=== PATIENT | female | born 1980 | race Caucasian/White ===

== ENCOUNTER 2021-01-16 17:49 | Emergency (ER) | payer BC, OTHER ==
[~2021-01-16] VITALS: Ht 172.7 cm; Wt 102.5 kg
--- NOTE | 2021-01-16 18:24 | ED Cough/URI ---
General Chief Complaint: Respiratory Problems Stated Complaint: COVID +/SOA Nursing Triage Note: PT AMBULATE TO ROOM FS05 WITH C/O SOB. PT REPORTS TESTING POS FOR COVID ON MONDAY. PT DENIES N/V/D. PT REPORTS THAT SHE HAS NOT BEEN EATING VERY MUCH. PT REPORTS TAKING A COLD AND FLU OTC MED AND IBUPROFEN. PT STATES THAT SHE HAS NOT TAKEN TYLENOL BECAUSE IT MAKES HER STOMACH HURT. PT REPORTS PURCHASING A HOME O2 MONITOR YESTERDAY AND THAT HER O2 HAS BEEN 88%-91% SINCE YESTERDAY. History of Present Illness Date Seen by Provider: Jan 16, 2021 Time Seen by Provider: 18:23 Initial Comments 40-year-old female presents with cough and shortness of air. Diagnosed with COVID-19 at an urgent care about a week ago and was given prescription for an albuterol inhaler, nothing else. Patient with continued intermittent fevers and overall feeling the same, no worse. Denies abdominal pain or chest pain, does have discomfort with coughing. Significant past medical history, denies a history of asthma COPD and she is a non-smoker. Allergies and Home Medications Allergies Coded Allergies: No Known Drug Allergies (Unverified , 01/16/21) Home Medications Ivermectin 3 Mg Tablet, 21 MG PO DAILY PRN Prescribed by: MONICO COLON on 01/16/211931 Patient Home Medication List Home Medication List Reviewed: Yes Review of Systems Review of Systems Constitutional: see HPI, chills; No diaphoresis, No dizziness; fever, malaise EENTM: no symptoms reported Respiratory: cough, short of breath; No stridor, No wheezing Cardiovascular: No chest pain, No edema, No palpitations Gastrointestinal: No abdominal pain, No constipation, No diarrhea; loss of appetite; No nausea, No vomiting Musculoskeletal: No back pain, No joint pain, No muscle pain Skin: No change in color, No rash Psychiatric/Neurological: Denies Numbness, Denies Paresthesia, Denies Seizure Past Zsuqsal-Jbngya-Exbbzo Hx Patient Social History Tobacco Use?: No Smoking Status: Never a Smoker Substance use?: No Alcohol Use?: No Pt feels they are or have been: No Physical Exam Vital Signs - First Documented 01/16/21 18:02 Temp 39.2 Pulse 108 Resp 17 B/P (MAP) 136/72 (93) O2 Delivery Room Air Capillary Refill : Less Than 3 Seconds Height: '" Weight: lbs. oz. kg; 34.00 BMI Method: General Appearance: WD/WN, no apparent distress Eyes: Bilateral Eye PERRL, Bilateral Eye EOMI HEENT: PERRL/EOMI, normal ENT inspection Neck: non-tender, full range of motion Respiratory: chest non-tender, lungs clear, no respiratory distress, rhonchi (scattered) Cardiovascular: regular rate, rhythm, no edema, no JVD Gastrointestinal: non tender, soft Extremities: normal range of motion, non-tender, normal inspection, no pedal edema Neurologic/Psychiatric: no motor/sensory deficits, alert, normal mood/affect, oriented x 3 Progress/Results/Core Measures Suspected Sepsis Recent Fever Within 48 Hours: Yes Infection Criteria Present: Documented Infection New/Unexplained Altered Menta: No Within 3hrs of presentation: D/C Instructions given to patient, Focus exam SIRS Temperature: Pulse: 108 Respiratory Rate: 17 Laboratory Tests 01/16/21 18:32: White Blood Count 7.4 Blood Pressure 136 /72 Mean: 93 Laboratory Tests 01/16/21 18:32: Creatinine 0.82, Platelet Count 242, Total Bilirubin 0.4 Results/Orders Lab Results Laboratory Tests Test 01/16/21 18:32 Range/Units White Blood Count 7.4 4.3-11.0 10^3/uL Red Blood Count 4.43 4.35-5.85 10^6/uL Hemoglobin 11.1 L 11.5-16.0 G/DL Hematocrit 35 35-52 % Mean Corpuscular Volume 80 80-99 FL Mean Corpuscular Hemoglobin 25 25-34 PG Mean Corpuscular Hemoglobin Concent 31 L 32-36 G/DL Red Cell Distribution Width 14.1 10.0-14.5 % Platelet Count 242 130-400 10^3/uL Mean Platelet Volume 9.8 7.4-10.4 FL Immature Granulocyte % (Auto) 0 % Neutrophils (%) (Auto) 89 H 42-75 % Lymphocytes (%) (Auto) 7 L 12-44 % Monocytes (%) (Auto) 4 0-12 % Eosinophils (%) (Auto) 0 0-10 % Basophils (%) (Auto) 0 0-10 % Neutrophils # (Auto) 6.6 1.8-7.8 X 10^3 Lymphocytes # (Auto) 0.5 L 1.0-4.0 X 10^3 Monocytes # (Auto) 0.3 0.0-1.0 X 10^3 Eosinophils # (Auto) 0.0 0.0-0.3 10^3/uL Basophils # (Auto) 0.0 0.0-0.1 10^3/uL Immature Granulocyte # (Auto) 0.0 0.0-0.1 10^3/uL Sodium Level 135 135-145 MMOL/L Potassium Level 3.2 L 3.6-5.0 MMOL/L Chloride Level 97 L 98-107 MMOL/L Carbon Dioxide Level 27 21-32 MMOL/L Anion Gap 11 5-14 MMOL/L Blood Urea Nitrogen 7 7-18 MG/DL Creatinine 0.82 0.60-1.30 MG/DL Estimat Glomerular Filtration Rate 76 BUN/Creatinine Ratio 9 Glucose Level 131 H 70-105 MG/DL Calcium Level 8.5 8.5-10.1 MG/DL Corrected Calcium 8.6 8.5-10.1 MG/DL Total Bilirubin 0.4 0.1-1.0 MG/DL Aspartate Amino Transf (AST/SGOT) 51 H 5-34 U/L Alanine Aminotransferase (ALT/SGPT) 22 0-55 U/L Alkaline Phosphatase 72 40-136 U/L C-Reactive Protein 9.13 H <0.50 MG/DL Total Protein 7.7 6.4-8.2 GM/DL Albumin 3.9 3.2-4.5 GM/DL My Orders Orders - ROVENSTINEMONICO DO Ed Iv/Invasive Line Start (01/16/21 18:23) Cbc With Automated Diff (01/16/21 18:23) Comprehensive Metabolic Panel (01/16/21 18:23) Chest 1 View Ap/Pa Only (01/16/21 18:23) Ed Iv/Invasive Line Start (01/16/21 18:34) Crp Fs (01/16/21 18:34) Manual Differential (01/16/21 18:32) Methylprednisolone Sod Succ (Solu-Medrol (01/16/21 19:30) Medications Given in ED Current Medications Medications Dose Ordered Sig/Audie Route Start Time Stop Time Status Last Admin Dose Admin Methylprednisolone Sodium Succinate 125 mg ONCE ONCE IVP 01/16/21 19:30 01/16/21 19:31 DC 01/16/21 19:27 125 MG Vital Signs/I&O 01/16/21 18:02 Temp 39.2 Pulse 108 Resp 17 B/P (MAP) 136/72 (93) O2 Delivery Room Air Capillary Refill : Less Than 3 Seconds Blood Pressure Mean: 93 Progress Note : Progress Note patient with known Covid, Dx from urgent care and given Rx for an inhaler. Has had no further guidance, not improving. Oxygen sats 91-94% on RA. Patient not in any respiratory distress. Discussed oupatient protocol and ER follow up if needed. Pt agrees and expresses understanding. Diagnostic Imaging Diagonstic Imaging: Xray Comments Date of Exam:01/16/21 CHEST 1 VIEW AP/PA ONLY INDICATION: Shortness of breath, Covid positive. EXAMINATION: Frontal chest was obtained at 6:32 p.m. FINDINGS: Heart and mediastinal silhouette appear unremarkable. There are patchy infiltrates throughout both lungs, suspicious for Covid pneumonia. There is no pneumothorax or pleural fluid. IMPRESSION: Patchy bilateral infiltrates are present which are suspicious for Covid pneumonia but are nonspecific. Correlate with clinical findings. Dictated on workstation # [id number] Dict: 01/16/211924 Trans: 01/16/211930 [facility] [id number] Interpreted by: JOSE A MORIN MD Electronically signed by: Departure Impression Primary Impression: Pneumonia due to COVID-19 virus Disposition: 01 HOME, SELF-CARE Condition: Stable Departure-Patient Inst. Decision time for Depature: 19:32 [address]: [facility] [place] Instructions: COVID-19 ED Add. Discharge Instructions: Return to the ER for any worsening of your shortness of air or oxygen saturations persisting below 90%. You are advised to establish a primary care provider for future follow up care Please take the following daily: - Aspirin 325mg (unless you have a medical reason not to take) daily for 2 weeks - Vitamin D 4,000iu daily - Vitamin C 1,000mg twice daily - Quercetin 250mg twice daily - Zinc 100mg daily - Melatonin 10mg at bedtime All discharge instructions reviewed with patient and/or family. Voiced understanding. Scripts Ivermectin (Ivermectin) 3 Mg Tablet 21 MG PO DAILY PRN for 5 Days, #35 TAB Prov: MONICO COLON DO 01/16/21 MONICO COLON DO Jan 16, 2021 18:24
[2021-01-16 18:57] LABS: BASOPHILS % (AUTO) 0 % (0-10); EOSINOPHILS % (AUTO) 0 % (0-10); HEMATOCRIT 35 % (35-52); HEMOGLOBIN 11.1 G/DL (11.5-16.0); LYMPHOCYTES # (AUTO) 0.5 X 10^3 (1.0-4.0); LYMPHOCYTES % (AUTO) 7 % (12-44); MEAN CORPUSCULAR HEMOGLOBIN 25 PG (25-34); MEAN CORPUSCULAR HGB CONC 31 G/DL (32-36); MEAN CORPUSCULAR VOLUME 80 FL (80-99); MEAN PLATELET VOLUME 9.8 FL (7.4-10.4); MONOCYTES # (AUTO) 0.3 X 10^3 (0.0-1.0); MONOCYTES % (AUTO) 4 % (0-12); NEUTROPHILS # (AUTO) 6.6 X 10^3 (1.8-7.8); NEUTROPHILS % (AUTO) 89 % (42-75); PLATELET COUNT 242 10^3/uL (130-400); POTASSIUM 3.2 MMOL/L (3.6-5.0); WHITE BLOOD COUNT 7.4 10^3/uL (4.3-11.0)
[2021-01-16 18:58] LABS: ALBUMIN 3.9 GM/DL (3.2-4.5); BILIRUBIN,TOTAL 0.4 MG/DL (0.1-1.0); CALCIUM 8.5 MG/DL (8.5-10.1); CREATININE SERUM 0.82 MG/DL (0.60-1.30); TOTAL PROTEIN 7.7 GM/DL (6.4-8.2)
[2021-01-16] MEDS ORDERED: methylPREDNISolone 125 MG (Solu-MEDROL) VIAL IVP ONE (19:30)
--- NOTE | 2021-01-16 19:31 | Diagnostic Imaging Report ---
INDICATION: Shortness of breath, Covid positive. EXAMINATION: Frontal chest was obtained at 6:32 p.m. FINDINGS: Heart and mediastinal silhouette appear unremarkable. There are patchy infiltrates throughout both lungs, suspicious for Covid pneumonia. There is no pneumothorax or pleural fluid. IMPRESSION: Patchy bilateral infiltrates are present which are suspicious for Covid pneumonia but are nonspecific. Correlate with clinical findings. Dictated by: Dictated on workstation # [id number]
[2021-01-16] MEDS ORDERED: IVER3TAB2 PO (19:32)
[2021-01-16 19:53] VITALS: BP 125/65
[2021-01-16 20:05] LABS: BAND NEUTROPHILS 2 %; LYMPHOCYTES % (MANUAL) 3 %; MONOCYTES % (MANUAL) 3 %; NEUTROPHILS % (MANUAL) 92 %
== END 2021-01-16 19:55 | disposition home or self-care (01) ==
LOC: ER FS 17:51
DX: U07.1 COVID-19 (principal); J12.82 Pneumonia due to coronavirus disease 2019
CPT/HCPCS: 36415; 71045; 80053; 85007; 85027; 86141; 96374

== ENCOUNTER 2021-01-18 07:48 | Inpatient (IN) | payer BC ==
[~2021-01-18] VITALS: Ht 172.7 cm; Wt 98.4 kg
[~2021-01-18 07:48] MED LIST: IVER3TAB2 PO
--- NOTE | 2021-01-18 08:05 | ED Dyspnea ---
General Stated Complaint: SOB; COVID+ Source of Information: Patient Exam Limitations: No Limitations History of Present Illness Date Seen by Provider: Jan 18, 2021 Time Seen by Provider: 08:05 Initial Comments 40-year-old female presents to the ER with complaint of shortness of air. Seen in this ER myself 2 days ago for shortness of air with oxygen sats in the low 90's... see note for details. Patient with known Covid diagnosed 1 week prior to an urgent care and only treatment given was an albuterol inhaler. Patient had persistent shortness of air that was not improving if not getting worse. Given prescription for ivermectin which she states the pharmacist refused to fill on Monday. Today she is feeling worse. Allergies and Home Medications Allergies Coded Allergies: No Known Drug Allergies (Unverified , 01/16/21) Home Medications Ivermectin 3 Mg Tablet, 21 MG PO DAILY PRN Prescribed by: MONICO COLON on 01/16/211931 Patient Home Medication List Home Medication List Reviewed: Yes Review of Systems Review of Systems Constitutional: No chills, No fever; malaise EENTM: no symptoms reported Respiratory: cough, short of breath; No wheezing Cardiovascular: No chest pain, No edema, No palpitations Gastrointestinal: No abdominal pain; loss of appetite; No nausea, No vomiting Musculoskeletal: No back pain, No joint pain Skin: No change in color, No rash Psychiatric/Neurological: Denies Numbness, Denies Seizure, Denies Weakness Past Vrplucb-Vnnund-Lhadyq Hx Patient Social History Tobacco Use?: No Physical Exam Vital Signs Vital Signs - First Documented 01/18/21 08:00 Temp 37.0 Pulse 88 Resp 18 B/P (MAP) 106/63 (77) Pulse Ox 92 O2 Delivery Nasal Cannula O2 Flow Rate 3.00 Capillary Refill : Height, Weight, BMI Height: '" Weight: lbs. oz. kg; 34.00 BMI Method: General Appearance: No Apparent Distress, WD/WN HEENT: PERRL/EOMI, Normal ENT Inspection Neck: Non Tender, Supple Respiratory: Chest Non Tender, Lungs Clear, Normal Breath Sounds, No Accessory Muscle Use, No Respiratory Distress Cardiovascular: Regular Rate, Rhythm, No Edema, No JVD Gastrointestinal: Non Tender, Soft Extremity: Normal Inspection, Non Tender Neurologic/Psychiatric: Alert, Oriented x3, No Motor/Sensory Deficits, Normal Mood/Affect Skin: Normal Color, Warm/Dry Focused Exam Lactate Level 01/18/21 08:35: Lactic Acid Level 1.58 Lactic Acid Level Laboratory Tests Test 01/18/21 08:35 Lactic Acid Level 1.58 MMOL/L (0.50-2.00) Progress/Results/Core Measures Results/Orders Lab Results Laboratory Tests Test 01/18/21 08:35 Range/Units White Blood Count 12.3 H 4.3-11.0 10^3/uL Red Blood Count 4.29 L 4.35-5.85 10^6/uL Hemoglobin 10.9 L 11.5-16.0 G/DL Hematocrit 34 L 35-52 % Mean Corpuscular Volume 79 L 80-99 FL Mean Corpuscular Hemoglobin 25 25-34 PG Mean Corpuscular Hemoglobin Concent 32 32-36 G/DL Red Cell Distribution Width 14.3 10.0-14.5 % Platelet Count 290 130-400 10^3/uL Mean Platelet Volume 10.3 7.4-10.4 FL Immature Granulocyte % (Auto) 1 % Neutrophils (%) (Auto) 93 H 42-75 % Lymphocytes (%) (Auto) 5 L 12-44 % Monocytes (%) (Auto) 2 0-12 % Eosinophils (%) (Auto) 0 0-10 % Basophils (%) (Auto) 0 0-10 % Neutrophils # (Auto) 11.4 H 1.8-7.8 X 10^3 Lymphocytes # (Auto) 0.6 L 1.0-4.0 X 10^3 Monocytes # (Auto) 0.2 0.0-1.0 X 10^3 Eosinophils # (Auto) 0.0 0.0-0.3 10^3/uL Basophils # (Auto) 0.0 0.0-0.1 10^3/uL Immature Granulocyte # (Auto) 0.1 0.0-0.1 10^3/uL Neutrophils % (Manual) 84 % Lymphocytes % (Manual) 2 % Monocytes % (Manual) 3 % Eosinophils % (Manual) 0 % Basophils % (Manual) 0 % Band Neutrophils 11 % D-Dimer 0.74 H 0.00-0.49 UG/ML Sodium Level 136 135-145 MMOL/L Potassium Level 3.0 L 3.6-5.0 MMOL/L Chloride Level 98 98-107 MMOL/L Carbon Dioxide Level 26 21-32 MMOL/L Anion Gap 12 5-14 MMOL/L Blood Urea Nitrogen 21 H 7-18 MG/DL Creatinine 1.07 0.60-1.30 MG/DL Estimat Glomerular Filtration Rate 56 BUN/Creatinine Ratio 20 Glucose Level 134 H 70-105 MG/DL Lactic Acid Level 1.58 0.50-2.00 MMOL/L Calcium Level 8.8 8.5-10.1 MG/DL Corrected Calcium 9.1 8.5-10.1 MG/DL Total Bilirubin 0.3 0.1-1.0 MG/DL Aspartate Amino Transf (AST/SGOT) 55 H 5-34 U/L Alanine Aminotransferase (ALT/SGPT) 27 0-55 U/L Alkaline Phosphatase 66 40-136 U/L C-Reactive Protein 9.89 H <0.50 MG/DL Total Protein 7.5 6.4-8.2 GM/DL Albumin 3.6 3.2-4.5 GM/DL Procalcitonin 0.14 H <0.10 NG/ML My Orders Orders - MONICO COLON DO Ed Iv/Invasive Line Start (01/18/21 08:14) Cbc With Automated Diff (01/18/21 08:14) Comprehensive Metabolic Panel (01/18/21 08:14) Procalcitonin (Pct) (01/18/21 08:14) Crp Fs (01/18/21 08:14) Fibrin Degradation Products (01/18/21 08:14) Lactic Acid Analyzer (01/18/21 08:14) Chest 1 View Ap/Pa Only (01/18/21 08:14) Methylprednisolone Sod Succ (Solu-Medrol (01/18/21 08:30) Manual Differential (01/18/21 08:35) Medications Given in ED Current Medications Medications Dose Ordered Sig/Audie Route Start Time Stop Time Status Last Admin Dose Admin Methylprednisolone Sodium Succinate 125 mg ONCE ONCE IVP 01/18/21 08:30 01/18/21 08:31 DC 01/18/21 08:32 125 MG Vital Signs/I&O 01/18/21 08:00 Temp 37.0 Pulse 88 Resp 18 B/P (MAP) 106/63 (77) Pulse Ox 92 O2 Delivery Nasal Cannula O2 Flow Rate 3.00 Progress Progress Note : Time: 13:01 Progress Note Doing well, oxygen stable, no worsening soa. Waiting for transport to [facility], [place], operated by [facility]. Departure Communication (Admissions) Time/Spoke to Admitting Phy: 09:[address] Aldrich- accepts for admission Impression Primary Impression: Pneumonia due to COVID-19 virus Additional Impression: Hypoxia Disposition: 30 STILL A PATIENT Condition: Stable Admissions Decision to Admit Reason: Admit from ER (General) Decision to Admit/Date: Jan 18, 2021 Time/Decision to Admit Time: 08:05 Departure-Patient Inst. Referrals: NO,LOCAL PHYSICIAN (PCP/Family) Primary Care Physician MONICO COLON DO Jan 18, 2021 08:05
[2021-01-18] MEDS ORDERED: methylPREDNISolone 125 MG (Solu-MEDROL) VIAL IVP ONE (08:30)
[2021-01-18] MEDS ORDERED: BUDE10.26 INH (08:41)
[2021-01-18 08:44] LABS: WHITE BLOOD COUNT 12.3 10^3/uL (4.3-11.0)
[2021-01-18 08:46] LABS: BASOPHILS % (AUTO) 0 % (0-10); EOSINOPHILS % (AUTO) 0 % (0-10); HEMATOCRIT 34 % (35-52); HEMOGLOBIN 10.9 G/DL (11.5-16.0); LYMPHOCYTES % (AUTO) 5 % (12-44); MEAN CORPUSCULAR HEMOGLOBIN 25 PG (25-34); MEAN CORPUSCULAR HGB CONC 32 G/DL (32-36); MEAN CORPUSCULAR VOLUME 79 FL (80-99); MEAN PLATELET VOLUME 10.3 FL (7.4-10.4); MONOCYTES % (AUTO) 2 % (0-12); NEUTROPHILS % (AUTO) 93 % (42-75); PLATELET COUNT 290 10^3/uL (130-400)
--- NOTE | 2021-01-18 08:46 | Diagnostic Imaging Report ---
INDICATION: Covid patient, shortness of air. COMPARISON: 01/16/2021. FINDINGS: The five lobed bilateral multifocal nodular infiltrates have progressed in density. The increase is most notable in the upper lobes. No effusion or pneumothorax, however. IMPRESSION: Increased multifocal patchy 5 lobed infiltrates. Dictated by: Dictated on workstation # [id number]
[2021-01-18 08:47] LABS: LYMPHOCYTES # (AUTO) 0.6 X 10^3 (1.0-4.0); MONOCYTES # (AUTO) 0.2 X 10^3 (0.0-1.0); NEUTROPHILS # (AUTO) 11.4 X 10^3 (1.8-7.8)
[2021-01-18 09:03] LABS: CREATININE SERUM 1.07 MG/DL (0.60-1.30)
[2021-01-18 09:04] LABS: ALBUMIN 3.6 GM/DL (3.2-4.5); BILIRUBIN,TOTAL 0.3 MG/DL (0.1-1.0); CALCIUM 8.8 MG/DL (8.5-10.1); TOTAL PROTEIN 7.5 GM/DL (6.4-8.2)
[2021-01-18 09:25] LABS: BAND NEUTROPHILS 11 %; BASOPHILS % (MANUAL) 0 %; EOSINOPHILS % (MANUAL) 0 %; LYMPHOCYTES % (MANUAL) 2 %; MONOCYTES % (MANUAL) 3 %; NEUTROPHILS % (MANUAL) 84 %
[2021-01-18] MEDS ORDERED: CATHETER FLUSH 10 ML SYR IV PRN (15:15)
[2021-01-18 15:37] VITALS: BP 111/67
[2021-01-18 15:58] VITALS: BP 111/67
[2021-01-18] MEDS ORDERED: ACETAMINOPHEN 325 MG TABLET PO PRN (17:15)
--- NOTE | 2021-01-18 17:19 | History & Physical-Hospitalist ---
History of Present Illness HPI/Chief Complaint Pt is a 40yoF with no known PMH who presented to the ER due to shortness of breath and cough. She has been symptomatic for 10 days. She was diagnosis with COVID on 01/15 and was seen in the ER on 01/16. The ER physician prescribed her Ivermectin. This was not filled. She presented this morning because her sats were 83% at home. She was hypoxic on arrival to the Er as well and is being admitted. She has many COVID related symptoms. She complains of fever, chills, cough, diarrhea, loss of appetite. She is unvaccinated against COVID19. Source: patient Date Seen 01/18/21 Time Seen by a Provider: 18:44 Attending Physician Maykel Aldrich MD PCP No,Local Physician Referring Physician Date of Admission Jan 18, 2021 at 14:47 Home Medications & Allergies Home Medications Reviewed patient Home Medication Reconciliation performed by pharmacy medication reconciliations psychiatric technician assistant and/or nursing. Patients Allergies have been reviewed. Allergies Allergies Coded Allergies No Known Drug Allergies (Unverified01/16/21) Past Txjcysy-Vcjevv-Ieswew Hx Patient Social History Tobacco Use?: No Use of E-Cig and/or Vaping dev: No Substance use?: No Alcohol Use?: No Pt feels they are or have been: No Immunizations Up To Date First/Initial COVID19 Vaccinat: N /A Tetanus Booster (TDap): Unknown Hepatitis A: No Hepatitis B: No Current Status status: No status: No Advance Directives: No Communicates: Verbally Primary Language: [place] Preferred Spoken Language: [place] Is interpretation needed?: No Sensory deficits: Vision impairment Implanted or Applied Medical D: None Review of Systems Constitutional: chills, fever, malaise, weakness EENTM: no symptoms reported Respiratory: cough, dyspnea on exertion, short of breath Cardiovascular: No chest pain, No palpitations Gastrointestinal: diarrhea, loss of appetite Genitourinary: no symptoms reported Musculoskeletal: no symptoms reported Skin: no symptoms reported Psychiatric/Neurological: No Symptoms Reported Physical Exam Physical Exam Vital Signs Vital Signs - First Documented 01/18/21 01/18/21 08:00 15:58 Temp 37.0 Pulse 88 Resp 18 B/P (MAP) 106/63 (77) Pulse Ox 92 O2 Delivery Nasal Cannula O2 Flow Rate 3.00 FiO2 36 Capillary Refill : Less Than 3 Seconds Height, Weight, BMI Height: '" Weight: lbs. oz. kg; 34.43 BMI Method: General Appearance: No Apparent Distress, WD/WN, Obese HEENT: PERRL/EOMI, Moist Mucous Membranes Neck: Normal Inspection, Supple Respiratory: No Accessory Muscle Use; No Crackles; Decreased Breath Sounds; No Wheezing Cardiovascular: Regular Rate, Rhythm, No JVD, No Murmur Gastrointestinal: Normal Bowel Sounds, Non Tender, Soft Extremity: Normal Capillary Refill, No Calf Tenderness, No Pedal Edema Neurologic/Psychiatric: Alert, Oriented x3, Normal Mood/Affect Results Results/Procedures Labs Laboratory Tests 01/18/21 08:35 Patient resulted labs reviewed. Imaging: Reviewed Imaging Report Imaging [facility] [place] NAME: CATHIE PINEDO [facility] REC#: [id number] PT STATUS: ADM IN : 1980 PHYSICIAN: MONICO COLON DO ADMIT DATE: 01/18/21 Signed Date of Exam:01/18/21 CHEST 1 VIEW AP/PA ONLY INDICATION: Covid patient, shortness of air. COMPARISON: 01/16/2021. FINDINGS: The five lobed bilateral multifocal nodular infiltrates have progressed in density. The increase is most notable in the upper lobes. No effusion or pneumothorax, however. IMPRESSION: Increased multifocal patchy 5 lobed infiltrates. Dictated by: Dictated on workstation # [id number] Dict: 01/18/21 0844 Trans: 01/18/21 1652 [id number] Interpreted by: ROSE MARIE COOPER Electronically signed by: ROSE MARIE COOPER 01/18/21 1652 Assessment/Plan Admission Diagnosis Acute Respiratory failure due to COVID19 Admission Status: Inpatient Order (span 2 midnights) Reason for Inpatient Admission: see below Assessment and Plan Acute Respiratory failure due to COVID19 10 days since symptom onset Decadron Remdesivir IS MAT protocol supportive measures Convalescent plasma unavailable as [employer] no longer collecting it Lovenox for Dvt ppx Diagnosis/Problems Diagnosis/Problems (1) Acute respiratory failure (2) Coronavirus infection MAYKEL ALDRICH MD Jan 18, 2021 17:18
[2021-01-18] MEDS ORDERED: REMDESIVIR INJ 200 MG in NS (IVPB) 210 ML IV NR (17:30)
[2021-01-18] MEDS: IBUPROFEN 600 MG (MOTRIN) TAB PO PRN (18:30)
[2021-01-18] MEDS: ENOXAPARIN 40 MG/0.4 ML (LOVENOX) SYR SC SCH (18:30)
[2021-01-18] MEDS: guaiFENesin SYRUP 100 MG/5 ML 10 ML (ROBITUSSIN SF) PO PRN (18:31)
--- NOTE | 2021-01-18 19:04 | Tele-ICU Consult ---
History of Present Illness History of Present Illness Date Seen by Provider: Jan 18, 2021 Time Seen by Provider: 18:30 Date of Admission Patient acknowledged, consented, and participated in this virtual visit which was conducted using real time audio/video. Thank you for asking us to see this patient for respiratory insufficiency and distress due to Covid pna.. HPC: Recent events: Admitted earlier today and feels a little better PMH: none SH: smoking history: Never FH: Non-contributory ROS: as in HPI PE: Converses comfortably. VSS O2 sat 92% on 4 LPM NC. HEENT: No obvious masses, adenopathy or JVD. Chest: clear to auscultation but slightly diminished.. CV: RRR S1 S2 No murmur or added sounds. Abd: Non-tender. Bowel sounds Y. : Unremarkable. Bradley N. MARKETING SENIOR RECRUITER/psychiatric: Alert and oriented, grossly intact. No obvious focal findings. Extremities: No edema. Capillary refill < 3 seconds. Skin: unremarkable. Results: Elevated WCC 12.3, D-Dimer 0.74. Decreased Hb 10.9, K 3.0. A/P: Respiratory insufficiency/distress: CPM Available chart/ vitals / labs / Images reviewed. CXR w extensive B infiltrates. Video assessment done using teleICU camera, rest of exam as per RN. Respiratory: Continue present management with Alb., Remdes., Dex., troy. Monitor for increasing oxygenation needs and/or need for ICU transfer. Discussed with JIMBO Borrero. Asked RN to reach out to eICU if any questions or concerns later. Time spent with patient/family/coordination of care with other health professionals (mins): 25 Allergies and Home Medications Allergies Coded Allergies: No Known Drug Allergies (Unverified , 01/16/21) Home Medications Ivermectin 3 Mg Tablet, 21 MG PO DAILY PRN Prescribed by: MONICO COLON on 01/16/211931 Past Medical/Social/Family Hx Patient Social History Tobacco Use?: No Use of E-Cig and/or Vaping dev: No Substance use?: No Alcohol Use?: No Pt stated abuse/neglect: No Immunizations Up To Date Influenza Vaccine Up-to-Date: No; Not Current First/Initial COVID19 Vaccinat: N /A Tetanus Booster (TDap): Unknown Hepatitis A: No Hepatitis B: No TB Skin Test: None Current Status status: No status: No Advance Directives: No Communicates: Verbally Primary Language: Arabic Preferred Spoken Language: Arabic Is interpretation needed?: No Sensory deficits: Vision impairment Implanted or Applied Medical D: None Review of Systems Constitutional: see HPI EENTM: see HPI Respiratory: see HPI Cardiovascular: see HPI Gastrointestinal: see HPI Genitourinary: see HPI Musculoskeletal: see HPI Skin: see HPI All Other Systems Reviewed Negative Unless Noted: Yes Sepsis Event Evaluation Height, Weight, BMI Height: '" Weight: lbs. oz. kg; 34.43 BMI Method: Exam Exam Patient acknowledged, consented, and participated in this virtual visit which was conducted using real time audio/video Vital Signs Date Time Temp Pulse Resp B/P (MAP) Pulse Ox O2 Delivery O2 Flow Rate FiO2 01/18/21 15:58 36.8 75 91 36 01/18/21 15:37 36.8 75 18 111/67 (82) 91 Nasal Cannula 4.00 01/18/21 15:10 91 Nasal Cannula 4.00 01/18/21 14:10 37.3 77 18 108/75 (77) 93 Nasal Cannula 3.00 01/18/21 08:00 37.0 88 18 106/63 (77) 92 Nasal Cannula 3.00 Height & Weight Height: '" Weight: lbs. oz. kg; 34.43 BMI Method: General Appearance: No Apparent Distress, WD/WN HEENT: PERRL/EOMI, Normal ENT Inspection Neck: Non Tender, Supple Respiratory: Chest Non Tender, Lungs Clear, Normal Breath Sounds, No Accessory Muscle Use, No Respiratory Distress Cardiovascular: Regular Rate, Rhythm, No Edema, No JVD Capillary Refill: Less Than 3 Seconds Extremity: Normal Inspection, Non Tender Neurologic/Psychiatric: Alert, Oriented x3, No Motor/Sensory Deficits, Normal Mood/Affect Skin: Normal Color, Warm/Dry Results Lab Laboratory Tests 01/18/21 08:35 Assessment/Plan Assessment/Plan see free text Critical Care: Critically Ill Patient Time spent on discussion(mins): 0 ANUPAMA DAS MD Jan 18, 2021 19:04
[2021-01-18 19:49] VITALS: BP 119/71
[2021-01-18] MEDS: RT-ALBUTEROL HFA 8.5 GM INHALER IH SCH (20:28)
[2021-01-18] MEDS: CATHETER FLUSH 10 ML SYR IV SCH (21:15)
[2021-01-18 23:30] VITALS: BP 105/59
[2021-01-19] MEDS: RT-ALBUTEROL HFA 8.5 GM INHALER IH SCH ×4 (02:45→22:19)
[2021-01-19 03:26] VITALS: BP_SYST 86; BP_SYST 89; BP_DIAS 52
[2021-01-19] MEDS: CATHETER FLUSH 10 ML SYR IV SCH ×3 (05:27→20:19)
[2021-01-19 06:13] LABS: HEMATOCRIT 34 % (35-52); HEMOGLOBIN 10.5 g/dL (11.5-16.0); MEAN CORPUSCULAR HEMOGLOBIN 25 pg (25-34); MEAN CORPUSCULAR HGB CONC 31 g/dL (32-36); MEAN CORPUSCULAR VOLUME 81 fL (80-99); MEAN PLATELET VOLUME 10.1 fL (9.0-12.2); PLATELET COUNT 280 10^3/uL (130-400); WHITE BLOOD COUNT 9.7 10^3/uL (4.3-11.0)
[2021-01-19 06:25] LABS: ALBUMIN 3.5 GM/DL (3.2-4.5); POTASSIUM 3.4 MMOL/L (3.6-5.0)
[2021-01-19 06:26] LABS: CALCIUM 8.7 MG/DL (8.5-10.1)
[2021-01-19 06:28] LABS: TOTAL PROTEIN 7.3 GM/DL (6.4-8.2)
[2021-01-19 06:29] LABS: BILIRUBIN,TOTAL 0.3 MG/DL (0.1-1.0)
[2021-01-19 06:31] LABS: CREATININE SERUM 0.67 MG/DL (0.60-1.30)
[2021-01-19] MEDS: guaiFENesin SYRUP 100 MG/5 ML 10 ML (ROBITUSSIN SF) PO PRN (07:06)
[2021-01-19 08:00] VITALS: BP 123/61
[2021-01-19] MEDS: dexAMETHasone 6 MG TAB (DECADRON) PO SCH (09:02)
[2021-01-19] MEDS ORDERED: LORA10TA76 PO (09:27)
[2021-01-19] MEDS ORDERED: IBUP-2473 PO (09:27)
[2021-01-19] MEDS ORDERED: ACET-2267 PO (09:27)
[2021-01-19] MEDS ORDERED: CALC10009 PO (09:27)
--- NOTE | 2021-01-19 10:24 | Pulmonary Progress Note ---
Subjective Date Seen by a Provider: Jan 19, 2021 Time Seen by a Provider: 11:48 Subjective/Events-last exam events over night vapotherm added 25%; cant lye down due sob Sepsis Event Evaluation Height, Weight, BMI Height: '" Weight: lbs. oz. kg; 34.43 BMI Method: Focused Exam Lactate Level 01/18/21 08:35: Lactic Acid Level 1.58 Exam Exam Patient acknowledged, consented, and participated in this virtual visit which was conducted using real time audio/video Vital Signs Date Time Temp Pulse Resp B/P (MAP) Pulse Ox O2 Delivery O2 Flow Rate FiO2 01/19/21 10:00 93 Vapotherm 25.00 70 01/19/21 03:26 36.0 64 18 89/52 (64) 99 Vapotherm 25.00 80.00 01/19/21 02:45 97 Vapotherm 25.00 80 01/18/21 23:30 36.0 75 18 105/59 (74) 92 High Flow N/C 6.00 01/18/21 20:28 95 Nasal Cannula 5.00 01/18/21 20:20 95 Nasal Cannula 5.00 01/18/21 19:49 36.8 80 20 119/71 (87) 91 Nasal Cannula 7.00 01/18/21 15:58 36.8 75 91 36 01/18/21 15:37 36.8 75 18 111/67 (82) 91 Nasal Cannula 4.00 01/18/21 15:10 91 Nasal Cannula 4.00 01/18/21 14:10 37.3 77 18 108/75 (77) 93 Nasal Cannula 3.00 I & O 01/19/21 07:00 Intake Total 1540 ml Balance 1540 ml Height & Weight Height: '" Weight: lbs. oz. kg; 34.43 BMI Method: General Appearance: No Apparent Distress, WD/WN, Mild Distress, Obese HEENT: PERRL/EOMI, Moist Mucous Membranes Neck: Normal Inspection, Supple Respiratory: No Accessory Muscle Use; No Crackles; Decreased Breath Sounds; No Wheezing Cardiovascular: Regular Rate, Rhythm, No JVD, No Murmur Capillary Refill: Less Than 3 Seconds Extremity: Normal Capillary Refill, No Calf Tenderness, No Pedal Edema Neurologic/Psychiatric: Alert, Oriented x3, Normal Mood/Affect Skin: Normal Color, Warm/Dry Results Lab Laboratory Tests 01/18/21 08:35 01/19/21 06:05 Assessment/Plan Assessment/Plan Acute hypoxemic resp failure -covid pna -ct chest ro pe on hold / we will order duplex of lower ext -trend ddimer -cpm abg ordered as well pt visualized ISABEL RECINOS MD Jan 19, 2021 10:24
[2021-01-19] MEDS ORDERED: HOLD METFORMIN - RECEIVED CONTRAST 20 ML VIAL IV SCH (10:30)
[2021-01-19] MEDS ORDERED: IOHEXOL 350 MG/ML 100 ML (OMNIPAQUE 350) VIAL IV ONE (10:30)
[2021-01-19] MEDS ORDERED: CATHETER FLUSH 10 ML SYR IV PRN (10:30)
[2021-01-19] MEDS ORDERED: NS 100 ML (IVPB) BAG IV ONE (10:30)
[2021-01-19 11:01] LABS: ABG OXYGEN SATURATION 94 % (94-100); ABG PCO2 38 MMHG (35-45); ABG PH 7.49 (7.37-7.43); ABG PO2 63 MMHG (79-93); ABG TCO2 29.7 MMOL/L (21.0-31.0)
[2021-01-19 11:02] LABS: ALLENS TEST YES-POS; INSPIRED O2 70%; PATIENT TEMP 36.6; VENTILATOR NO
[2021-01-19] MEDS ORDERED: [UNRECOGNIZED DRUG - REMARK] IV NR (11:30)
[2021-01-19 12:00] VITALS: BP 105/58
--- NOTE | 2021-01-19 13:42 | Progress Note - Hospitalist ---
Subjective HPI/CC On Admission Date Seen by Provider: Jan 19, 2021 Time Seen by Provider: 13:38 Pt is a 40yoF with no known PMH who presented to the ER due to shortness of breath and cough. She has been symptomatic for 10 days. She was diagnosis with COVID on 01/15 and was seen in the ER on 01/16. The ER physician prescribed her Ivermectin. This was not filled. She presented this morning because her sats were 83% at home. She was hypoxic on arrival to the Er as well and is being admitted. She has many COVID related symptoms. She complains of fever, chills, cough, diarrhea, loss of appetite. She is unvaccinated against COVID19. Subjective/Events-last exam Pt reports feeling ok. She had a coughing attack this mornign and desatted significantly. Now on Vapotherm. Focused Exam Lactate Level 01/18/21 08:35: Lactic Acid Level 1.58 Objective Exam Vital Signs Vital Signs Date Time Temp Pulse Resp B/P (MAP) Pulse Ox O2 Delivery O2 Flow Rate FiO2 01/19/21 12:00 36.8 68 22 105/58 (74) 93 Vapotherm 25.00 70.00 01/19/21 10:00 70 Capillary Refill : Less Than 3 Seconds General Appearance: No Apparent Distress, Obese Respiratory: No Accessory Muscle Use, Decreased Breath Sounds, Other (on Vapotherm) Cardiovascular: Regular Rate, Rhythm, No Murmur Gastrointestinal: Normal Bowel Sounds, Non Tender, Soft Neurologic/Psychiatric: Alert, Oriented x3 Results/Procedures Lab Laboratory Tests 01/19/21 06:05 Patient resulted labs reviewed. Imaging: Reviewed Imaging Report Assessment/Plan Assessment and Plan Assess & Plan/Chief Complaint Acute Respiratory failure due to COVID19 10 days since symptom onset Decadron Will DC Remdesivir due to Vapotherm need, dose Actemra IS MAT protocol supportive measures Convalescent plasma unavailable as [place] no longer collecting it Lovenox for Dvt ppx CTA ordered, but unable to take down on Vapotherm Dopplers of lower extremities ordered d dimer is 0.56 though so VTE less likely low threshold for transfer to ICU Critical Care Critically Ill Patient Diagnosis/Problems Diagnosis/Problems (1) Acute respiratory failure (2) Coronavirus infection MAYKEL MIAN MD Jan 19, 2021 13:42
--- NOTE | 2021-01-19 14:46 | Diagnostic Imaging Report ---
PROCEDURE: US Venous Lower Ext [place]. INDICATION: Shortness of breath, hypoxia, Covid pneumonia. TECHNIQUE: Multiple real-time grayscale images were obtained over the lower extremities in various projections, bilaterally. Additional duplex Doppler and color Doppler images were also obtained. CORRELATION STUDY: None FINDINGS: Color and grayscale sonographic images demonstrate no intraluminal defect within the visualized portion of the common femoral, superficial femoral and/or popliteal veins to suggest thrombus formation. These vessels demonstrate normal response to compression and augmentation. No soft tissue fluid collection. IMPRESSION: 1. Negative for deep venous thrombosis of either leg. Dictated by: Dictated on workstation # [id number]
[2021-01-19 16:03] VITALS: BP 107/61
[2021-01-19] MEDS: ENOXAPARIN 40 MG/0.4 ML (LOVENOX) SYR SC SCH (17:13)
[2021-01-19] MEDS ORDERED: REMDESIVIR INJ 100 MG in NS (IVPB) 230 ML IV SCH (17:15)
[2021-01-19 19:21] VITALS: BP 103/57
[2021-01-19] MEDS ORDERED: NON-FORMULARY MEDICATION 1 EA EA (Budesonide/Formoterol Fumarate (Budesonide-Formoterol 16 INH SCH (21:00)
[2021-01-19] MEDS: RT--FLUTICASONE/SALMETEROL 232-14 (AIRDUO RespiCLICK) IH SCH (22:19)
[2021-01-19 23:04] VITALS: BP 109/63
[2021-01-20] MEDS: guaiFENesin SYRUP 100 MG/5 ML 10 ML (ROBITUSSIN SF) PO PRN ×2 (00:27→22:07)
[2021-01-20] MEDS: RT-ALBUTEROL HFA 8.5 GM INHALER IH SCH ×4 (02:08→21:14)
[2021-01-20 03:00] VITALS: BP 105/58
[2021-01-20 05:49] LABS: HEMATOCRIT 34 % (35-52); HEMOGLOBIN 10.3 g/dL (11.5-16.0); MEAN CORPUSCULAR HEMOGLOBIN 25 pg (25-34); MEAN CORPUSCULAR HGB CONC 30 g/dL (32-36); MEAN CORPUSCULAR VOLUME 83 fL (80-99); MEAN PLATELET VOLUME 10.4 fL (9.0-12.2); PLATELET COUNT 303 10^3/uL (130-400); WHITE BLOOD COUNT 5.1 10^3/uL (4.3-11.0)
[2021-01-20 06:01] LABS: ALBUMIN 3.4 GM/DL (3.2-4.5); POTASSIUM 3.7 MMOL/L (3.6-5.0)
[2021-01-20 06:02] LABS: CALCIUM 8.6 MG/DL (8.5-10.1)
[2021-01-20 06:05] LABS: BILIRUBIN,TOTAL 0.4 MG/DL (0.1-1.0)
[2021-01-20 06:07] LABS: CREATININE SERUM 0.67 MG/DL (0.60-1.30)
[2021-01-20] MEDS: CATHETER FLUSH 10 ML SYR IV SCH ×2 (06:34→16:51)
[2021-01-20] MEDS: RT--FLUTICASONE/SALMETEROL 232-14 (AIRDUO RespiCLICK) IH SCH ×2 (07:09→21:14)
[2021-01-20 08:00] VITALS: BP 97/53
--- NOTE | 2021-01-20 08:23 | Tele-ICU Progress Note ---
Subjective Date Seen by a Provider: Jan 20, 2021 Time Seen by a Provider: 07:45 Subjective/Events-last exam Per RN Dolores pt unchanged with no overnight changes on Vapotherm 70%. No new recommendations. Will sign off. Please call if questions. Sepsis Event Evaluation Height, Weight, BMI Height: '" Weight: lbs. oz. kg; 34.43 BMI Method: Focused Exam Lactate Level 01/18/21 08:35: Lactic Acid Level 1.58 Exam Exam Patient acknowledged, consented, and participated in this virtual visit which was conducted using real time audio/video Vital Signs Date Time Temp Pulse Resp B/P (MAP) Pulse Ox O2 Delivery O2 Flow Rate FiO2 01/20/21 07:10 91 Vapotherm 30.00 85 01/20/21 07:09 91 Vapotherm 30.00 85 01/20/21 03:00 36.8 58 20 105/58 (74) 95 Vapotherm 30.00 70.00 01/20/21 02:08 92 Vapotherm 30.00 70 01/19/21 23:04 36.4 62 20 109/63 (78) 93 Vapotherm 40.00 100.00 01/19/21 22:21 95 Vapotherm 25.00 75 01/19/21 22:20 95 Vapotherm 25.00 75 01/19/21 20:43 96 Nasal Cannula 25.00 70 01/19/21 19:21 36.7 67 18 103/57 (72) 96 Vapotherm 25.00 70.00 01/19/21 16:03 37.0 75 20 107/61 (76) 97 Vapotherm 25.00 70.00 01/19/21 14:38 95 Vapotherm 25.00 75 01/19/21 12:00 36.8 68 22 105/58 (74) 93 Vapotherm 25.00 70.00 01/19/21 10:00 93 Vapotherm 25.00 70 I & O 01/20/21 07:00 Intake Total 1370 ml Output Total 600 ml Balance 770 ml Height & Weight Height: '" Weight: lbs. oz. kg; 34.43 BMI Method: General Appearance: No Apparent Distress, Obese HEENT: PERRL/EOMI, Moist Mucous Membranes Neck: Normal Inspection, Supple Respiratory: No Accessory Muscle Use, Decreased Breath Sounds, Other (on Vapotherm) Cardiovascular: Regular Rate, Rhythm, No Murmur Capillary Refill: Less Than 3 Seconds Extremity: Normal Capillary Refill, No Calf Tenderness, No Pedal Edema Neurologic/Psychiatric: Alert, Oriented x3 Skin: Normal Color, Warm/Dry Results Lab Laboratory Tests 01/18/21 08:35 01/19/21 06:05 01/20/21 05:26 Assessment/Plan Assessment/Plan See free text. ANUPAMA DAS MD Jan 20, 2021 08:23
[2021-01-20] MEDS: dexAMETHasone 6 MG TAB (DECADRON) PO SCH (09:19)
[2021-01-20 12:00] VITALS: BP 109/59
--- NOTE | 2021-01-20 14:20 | Progress Note - Hospitalist ---
Subjective HPI/CC On Admission Date Seen by Provider: Jan 20, 2021 Time Seen by Provider: 14:17 Pt is a 40yoF with no known PMH who presented to the ER due to shortness of breath and cough. She has been symptomatic for 10 days. She was diagnosis with COVID on 01/15 and was seen in the ER on 01/16. The ER physician prescribed her Ivermectin. This was not filled. She presented this morning because her sats were 83% at home. She was hypoxic on arrival to the Er as well and is being admitted. She has many COVID related symptoms. She complains of fever, chills, cough, diarrhea, loss of appetite. She is unvaccinated against COVID19. Subjective/Events-last exam Pt reports feeling better today. Still on Vapotherm. No complaints. Discussed with RN who states patient does well when resting but desats quickly with any movement. Focused Exam Lactate Level 01/18/21 08:35: Lactic Acid Level 1.58 Objective Exam Vital Signs Vital Signs Date Time Temp Pulse Resp B/P (MAP) Pulse Ox O2 Delivery O2 Flow Rate FiO2 01/20/21 12:00 36.1 60 20 109/59 (76) 98 Vapotherm 30.00 70.00 01/20/21 08:00 85 Capillary Refill : Less Than 3 Seconds General Appearance: No Apparent Distress, WD/WN, Obese Respiratory: No Respiratory Distress, Rhonci Cardiovascular: Regular Rate, Rhythm, No Murmur Extremity: No Calf Tenderness, No Pedal Edema Neurologic/Psychiatric: Alert, Oriented x3 Results/Procedures Lab Laboratory Tests 01/20/21 05:26 Patient resulted labs reviewed. Imaging: Reviewed Imaging Report Assessment/Plan Assessment and Plan Assess & Plan/Chief Complaint Acute Respiratory failure due to COVID19 10 days since symptom onset Decadron s/p Actemra IS MAT protocol supportive measures Convalescent plasma unavailable as [place] [facility] no longer collecting it Lovenox for Dvt ppx CTA ordered, but unable to take down on Vapotherm Dopplers of lower extremities negative d dimer is 0.56 though so VTE less likely low threshold for transfer to ICU Critical Care Critically Ill Patient Diagnosis/Problems Diagnosis/Problems (1) Acute respiratory failure (2) Coronavirus infection MAYKEL MINA MD Jan 20, 2021 14:20
[2021-01-20 15:55] VITALS: BP 108/58
[2021-01-20] MEDS: ENOXAPARIN 40 MG/0.4 ML (LOVENOX) SYR SC SCH (16:51)
[2021-01-20 20:22] VITALS: BP 126/65
[2021-01-20] MEDS: ONDANSETRON 4 MG/2 ML (SDV) Z0FRAN IV PRN (21:03)
[2021-01-21] VITALS (7 sets, daily range): BP systolic 106–126; BP diastolic 56–72
[2021-01-21] MEDS: CATHETER FLUSH 10 ML SYR IV SCH ×4 (01:25→23:10)
[2021-01-21] MEDS: RT-ALBUTEROL HFA 8.5 GM INHALER IH SCH ×4 (03:14→10:07)
[2021-01-21 05:49] LABS: HEMATOCRIT 35 % (35-52); HEMOGLOBIN 10.6 g/dL (11.5-16.0); MEAN CORPUSCULAR HEMOGLOBIN 25 pg (25-34); MEAN CORPUSCULAR HGB CONC 30 g/dL (32-36); MEAN CORPUSCULAR VOLUME 84 fL (80-99); MEAN PLATELET VOLUME 9.9 fL (9.0-12.2); PLATELET COUNT 290 10^3/uL (130-400); WHITE BLOOD COUNT 6.2 10^3/uL (4.3-11.0)
[2021-01-21 05:59] LABS: ALBUMIN 3.2 GM/DL (3.2-4.5)
[2021-01-21 06:00] LABS: CALCIUM 8.5 MG/DL (8.5-10.1)
[2021-01-21 06:02] LABS: TOTAL PROTEIN 6.7 GM/DL (6.4-8.2)
[2021-01-21 06:04] LABS: BILIRUBIN,TOTAL 0.5 MG/DL (0.1-1.0)
[2021-01-21 06:05] LABS: CREATININE SERUM 0.71 MG/DL (0.60-1.30)
[2021-01-21] MEDS: dexAMETHasone 6 MG TAB (DECADRON) PO SCH (09:03)
[2021-01-21] MEDS: guaiFENesin SYRUP 100 MG/5 ML 10 ML (ROBITUSSIN SF) PO PRN ×3 (09:03→23:10)
[2021-01-21] MEDS: RT--FLUTICASONE/SALMETEROL 232-14 (AIRDUO RespiCLICK) IH SCH ×4 (09:09→18:11)
--- NOTE | 2021-01-21 11:44 | Progress Note - Hospitalist ---
Subjective HPI/CC On Admission Date Seen by Provider: Jan 21, 2021 Time Seen by Provider: 11:42 Pt is a 40yoF with no known PMH who presented to the ER due to shortness of breath and cough. She has been symptomatic for 10 days. She was diagnosis with COVID on 01/15 and was seen in the ER on 01/16. The ER physician prescribed her Ivermectin. This was not filled. She presented this morning because her sats were 83% at home. She was hypoxic on arrival to the Er as well and is being admitted. She has many COVID related symptoms. She complains of fever, chills, cough, diarrhea, loss of appetite. She is unvaccinated against COVID19. Subjective/Events-last exam Pt reports feeling well. No complaints. Up to 30lpm/100% on Vapotherm. Objective Exam Vital Signs Vital Signs Date Time Temp Pulse Resp B/P (MAP) Pulse Ox O2 Delivery O2 Flow Rate FiO2 01/21/21 11:12 36.5 86 24 113/58 (76) 93 Vapotherm 30.00 100.00 01/21/21 10:07 100 Capillary Refill : Less Than 3 Seconds General Appearance: No Apparent Distress, Obese Respiratory: No Accessory Muscle Use, Decreased Breath Sounds, Other (on vapotherm) Cardiovascular: Regular Rate, Rhythm, No Murmur Neurologic/Psychiatric: Alert, Oriented x3 Results/Procedures Lab Laboratory Tests 01/21/21 05:40 Patient resulted labs reviewed. Imaging: Reviewed Imaging Report Assessment/Plan Assessment and Plan Assess & Plan/Chief Complaint Acute Respiratory failure due to COVID19 Decadron s/p Actemra IS MAT protocol supportive measures Convalescent plasma unavailable as [place] no longer collecting it Lovenox for Dvt ppx CTA ordered, but unable to take down on Vapotherm Dopplers of lower extremities negative d dimer is 0.56 though so VTE less likely low threshold for transfer to ICU if maxes out Vapotherm Critical Care Critically Ill Patient Diagnosis/Problems Diagnosis/Problems (1) Acute respiratory failure (2) Coronavirus infection MAYKEL MINA MD Jan 21, 2021 11:44
[2021-01-21] MEDS ORDERED: hydrOXYzine (ATARAX) 10 MG TAB PO PRN (11:45)
[2021-01-21] MEDS: ENOXAPARIN 40 MG/0.4 ML (LOVENOX) SYR SC SCH (17:53)
[2021-01-21] MEDS: ONDANSETRON 4 MG/2 ML (SDV) Z0FRAN IV PRN (17:55)
[2021-01-22 03:56] VITALS: BP 105/54
[2021-01-22 04:36] LABS: HEMATOCRIT 36 % (35-52); MEAN CORPUSCULAR HEMOGLOBIN 25 pg (25-34); MEAN CORPUSCULAR HGB CONC 30 g/dL (32-36); MEAN CORPUSCULAR VOLUME 83 fL (80-99); MEAN PLATELET VOLUME 10.3 fL (9.0-12.2); PLATELET COUNT 303 10^3/uL (130-400); WHITE BLOOD COUNT 8.9 10^3/uL (4.3-11.0)
[2021-01-22 04:42] LABS: ALBUMIN 3.2 GM/DL (3.2-4.5)
[2021-01-22 04:44] LABS: CALCIUM 8.4 MG/DL (8.5-10.1)
[2021-01-22 04:45] LABS: TOTAL PROTEIN 6.5 GM/DL (6.4-8.2)
[2021-01-22 04:47] LABS: BILIRUBIN,TOTAL 0.5 MG/DL (0.1-1.0)
[2021-01-22 04:49] LABS: CREATININE SERUM 0.72 MG/DL (0.60-1.30)
[2021-01-22] MEDS: CATHETER FLUSH 10 ML SYR IV SCH ×3 (06:21→22:35)
[2021-01-22 08:00] VITALS: BP 105/58
[2021-01-22] MEDS: dexAMETHasone 6 MG TAB (DECADRON) PO SCH (10:52)
[2021-01-22 12:00] VITALS: BP 92/53
--- NOTE | 2021-01-22 13:24 | Progress Note - Hospitalist ---
Subjective HPI/CC On Admission Date Seen by Provider: Jan 22, 2021 Time Seen by Provider: 13:21 Pt is a 40yoF with no known PMH who presented to the ER due to shortness of breath and cough. She has been symptomatic for 10 days. She was diagnosis with COVID on 01/15 and was seen in the ER on 01/16. The ER physician prescribed her Ivermectin. This was not filled. She presented this morning because her sats were 83% at home. She was hypoxic on arrival to the Er as well and is being admitted. She has many COVID related symptoms. She complains of fever, chills, cough, diarrhea, loss of appetite. She is unvaccinated against COVID19. Subjective/Events-last exam Pt reports feeling well still. No complaints. Still on vapotherm. She reports dyspnea still with exertion or coughing attack. Objective Exam Vital Signs Vital Signs Date Time Temp Pulse Resp B/P (MAP) Pulse Ox O2 Delivery O2 Flow Rate FiO2 01/22/21 08:00 36.2 68 22 105/58 (74) 95 Vapotherm 30.00 75.00 01/22/21 08:00 80 Capillary Refill : Less Than 3 Seconds General Appearance: No Apparent Distress, Obese Respiratory: No Accessory Muscle Use, Decreased Breath Sounds Cardiovascular: Regular Rate, Rhythm, No Murmur Gastrointestinal: Normal Bowel Sounds, Non Tender, Soft Neurologic/Psychiatric: Alert, Oriented x3 Results/Procedures Lab Laboratory Tests 01/22/21 04:20 Patient resulted labs reviewed. Imaging: Reviewed Imaging Report Assessment/Plan Assessment and Plan Assess & Plan/Chief Complaint Acute Respiratory failure due to COVID19 Decadron s/p Actemra IS MAT protocol supportive measures Convalescent plasma unavailable as [place] no longer collecting it Lovenox for Dvt ppx CTA ordered, but unable to take down on Vapotherm Dopplers of lower extremities negative d dimer is 0.56 though so VTE less likely Vapotherm setting trending down, continue to wean as able Critical Care Critically Ill Patient Diagnosis/Problems Diagnosis/Problems (1) Acute respiratory failure (2) Coronavirus infection MAYKEL MINA MD Jan 22, 2021 13:24
[2021-01-22 16:21] VITALS: BP 112/55
[2021-01-22] MEDS: ENOXAPARIN 40 MG/0.4 ML (LOVENOX) SYR SC SCH (16:58)
[2021-01-22 19:35] VITALS: BP 119/58
[2021-01-22] MEDS: RT-ALBUTEROL HFA 8.5 GM INHALER IH PRN (20:08)
[2021-01-22] MEDS: RT--FLUTICASONE/SALMETEROL 232-14 (AIRDUO RespiCLICK) IH SCH (20:09)
[2021-01-22 23:20] VITALS: BP 111/55
[2021-01-23 04:00] VITALS: BP 126/68
[2021-01-23] MEDS: CATHETER FLUSH 10 ML SYR IV SCH ×3 (06:29→20:20)
[2021-01-23 07:25] LABS: HEMATOCRIT 37 % (35-52); HEMOGLOBIN 11.2 g/dL (11.5-16.0); MEAN CORPUSCULAR HEMOGLOBIN 25 pg (25-34); MEAN CORPUSCULAR HGB CONC 30 g/dL (32-36); MEAN CORPUSCULAR VOLUME 82 fL (80-99); MEAN PLATELET VOLUME 10.1 fL (9.0-12.2); PLATELET COUNT 306 10^3/uL (130-400); WHITE BLOOD COUNT 10.1 10^3/uL (4.3-11.0)
[2021-01-23 07:51] LABS: ALBUMIN 3.3 GM/DL (3.2-4.5); BILIRUBIN,TOTAL 0.6 MG/DL (0.1-1.0); CALCIUM 8.6 MG/DL (8.5-10.1); CREATININE SERUM 0.68 MG/DL (0.60-1.30); POTASSIUM 3.7 MMOL/L (3.6-5.0); TOTAL PROTEIN 6.6 GM/DL (6.4-8.2)
[2021-01-23] MEDS: RT--FLUTICASONE/SALMETEROL 232-14 (AIRDUO RespiCLICK) IH SCH ×2 (07:59→19:05)
[2021-01-23 08:00] VITALS: BP 112/57
[2021-01-23] MEDS: RT-ALBUTEROL HFA 8.5 GM INHALER IH PRN ×2 (08:00→19:05)
[2021-01-23] MEDS: dexAMETHasone 6 MG TAB (DECADRON) PO SCH (09:12)
[2021-01-23] MEDS: guaiFENesin SYRUP 100 MG/5 ML 10 ML (ROBITUSSIN SF) PO PRN (09:15)
[2021-01-23 12:00] VITALS: BP 110/56
--- NOTE | 2021-01-23 14:02 | Progress Note - Hospitalist ---
Subjective HPI/CC On Admission Date Seen by Provider: Jan 23, 2021 Time Seen by Provider: 14:00 Pt is a 40yoF with no known PMH who presented to the ER due to shortness of breath and cough. She has been symptomatic for 10 days. She was diagnosis with COVID on 01/15 and was seen in the ER on 01/16. The ER physician prescribed her Ivermectin. This was not filled. She presented this morning because her sats were 83% at home. She was hypoxic on arrival to the Er as well and is being admitted. She has many COVID related symptoms. She complains of fever, chills, cough, diarrhea, loss of appetite. She is unvaccinated against COVID19. Subjective/Events-last exam Pt reports feeling ok except when xoughing. Getting frustrated with beeping on pulse ox though as she can't see it and that causes her to be anxious. I repositioned the monitor so she could see it and so it could be seen from the window. Objective Exam Vital Signs Vital Signs Date Time Temp Pulse Resp B/P (MAP) Pulse Ox O2 Delivery O2 Flow Rate FiO2 01/23/21 12:00 35.9 86 22 110/56 (74) 95 Vapotherm 25.00 75.00 01/23/21 08:03 70 Capillary Refill : Less Than 3 Seconds General Appearance: No Apparent Distress, WD/WN, Obese Respiratory: No Accessory Muscle Use, Decreased Breath Sounds, Other (on vapotherm) Cardiovascular: Regular Rate, Rhythm, No Murmur Neurologic/Psychiatric: Alert, Oriented x3, Normal Mood/Affect Results/Procedures Lab Laboratory Tests 01/23/21 07:04 Patient resulted labs reviewed. Imaging: Reviewed Imaging Report Assessment/Plan Assessment and Plan Assess & Plan/Chief Complaint Acute Respiratory failure due to COVID19 Decadron s/p Actemra IS MAT protocol supportive measures Convalescent plasma unavailable as [place] no longer collecting it Lovenox for DVT ppx CTA ordered, but unable to take down on Vapotherm Dopplers of lower extremities negative d dimer is 0.56 though so VTE less likely Vapotherm setting trending down, continue to wean as able Very slow recovery though is improving somewhat every day Critical Care Critically Ill Patient Diagnosis/Problems Diagnosis/Problems (1) Acute respiratory failure (2) Coronavirus infection MAYKEL MINA MD Jan 23, 2021 14:02
[2021-01-23 16:00] VITALS: BP 118/64
[2021-01-23] MEDS: ENOXAPARIN 40 MG/0.4 ML (LOVENOX) SYR SC SCH (18:03)
[2021-01-23 19:47] VITALS: BP 116/57
[2021-01-23 23:56] VITALS: BP 118/57
[2021-01-24] MEDS: RT-ALBUTEROL HFA 8.5 GM INHALER IH PRN ×4 (01:42→21:19)
[2021-01-24 04:30] VITALS: BP 103/54
[2021-01-24] MEDS: CATHETER FLUSH 10 ML SYR IV SCH ×3 (06:21→22:03)
[2021-01-24 06:39] LABS: HEMATOCRIT 36 % (35-52); HEMOGLOBIN 11.2 g/dL (11.5-16.0); MEAN CORPUSCULAR HEMOGLOBIN 25 pg (25-34); MEAN CORPUSCULAR HGB CONC 31 g/dL (32-36); MEAN CORPUSCULAR VOLUME 82 fL (80-99); MEAN PLATELET VOLUME 10.2 fL (9.0-12.2); PLATELET COUNT 280 10^3/uL (130-400); WHITE BLOOD COUNT 11.8 10^3/uL (4.3-11.0)
[2021-01-24 07:33] VITALS: BP 107/62
[2021-01-24] MEDS: RT--FLUTICASONE/SALMETEROL 232-14 (AIRDUO RespiCLICK) IH SCH ×2 (09:04→21:20)
[2021-01-24] MEDS: dexAMETHasone 6 MG TAB (DECADRON) PO SCH (09:19)
[2021-01-24] MEDS: guaiFENesin SYRUP 100 MG/5 ML 10 ML (ROBITUSSIN SF) PO PRN ×3 (09:19→22:02)
[2021-01-24 11:20] VITALS: BP 98/52
--- NOTE | 2021-01-24 13:20 | Progress Note - Hospitalist ---
Subjective HPI/CC On Admission Date Seen by Provider: Jan 24, 2021 Time Seen by Provider: 13:15 Pt is a 40yoF with no known PMH who presented to the ER due to shortness of breath and cough. She has been symptomatic for 10 days. She was diagnosis with COVID on 01/15 and was seen in the ER on 01/16. The ER physician prescribed her Ivermectin. This was not filled. She presented this morning because her sats were 83% at home. She was hypoxic on arrival to the Er as well and is being admitted. She has many COVID related symptoms. She complains of fever, chills, cough, diarrhea, loss of appetite. She is unvaccinated against COVID19. Subjective/Events-last exam Pt reports doing well. Oxygen saturations improving. Reassured her that this is common for COVID and that recovery takes time and she will likely have symptoms for months if not longer. Objective Exam Vital Signs Vital Signs Date Time Temp Pulse Resp B/P (MAP) Pulse Ox O2 Delivery O2 Flow Rate FiO2 01/24/21 11:20 36.7 87 16 98/52 (67) 95 Vapotherm 25.00 75.00 01/24/21 09:06 75 Capillary Refill : Less Than 3 Seconds General Appearance: No Apparent Distress, Obese Respiratory: Lungs Clear, No Accessory Muscle Use, Other (on Vapotherm) Cardiovascular: Regular Rate, Rhythm, No Murmur Gastrointestinal: Normal Bowel Sounds, Non Tender, Soft Neurologic/Psychiatric: Alert, Oriented x3 Results/Procedures Lab Laboratory Tests 01/24/21 06:10 Patient resulted labs reviewed. Imaging: Reviewed Imaging Report Assessment/Plan Assessment and Plan Assess & Plan/Chief Complaint Acute Respiratory failure due to COVID19 Decadron s/p Actemra IS MAT protocol supportive measures Convalescent plasma unavailable as [place] no longer collecting it Lovenox for DVT ppx CTA ordered, but unable to take down on Vapotherm Dopplers of lower extremities negative d dimer is 0.56 though so VTE less likely Vapotherm setting trending down, continue to wean as able- i was able to wean down to 65% fio2 as well Very slow recovery though is improving somewhat every day Critical Care Critically Ill Patient Diagnosis/Problems Diagnosis/Problems (1) Acute respiratory failure (2) Coronavirus infection MAYKEL MINA MD Jan 24, 2021 13:20
[2021-01-24 15:55] VITALS: BP 122/78
[2021-01-24] MEDS ORDERED: CALCIUM CARBONATE 500 MG (TUMS) TAB.CHEW PO PRN ×2 (16:45→21:30)
[2021-01-24] MEDS: ENOXAPARIN 40 MG/0.4 ML (LOVENOX) SYR SC SCH (17:03)
[2021-01-24 20:00] VITALS: BP 118/62
[2021-01-24 23:49] VITALS: BP 105/59
[2021-01-25] MEDS: RT-ALBUTEROL HFA 8.5 GM INHALER IH PRN ×2 (01:58→09:45)
[2021-01-25] MEDS: guaiFENesin SYRUP 100 MG/5 ML 10 ML (ROBITUSSIN SF) PO PRN ×4 (01:59→17:29)
[2021-01-25 06:25] LABS: HEMATOCRIT 38 % (35-52); HEMOGLOBIN 11.6 g/dL (11.5-16.0); MEAN CORPUSCULAR HEMOGLOBIN 25 pg (25-34); MEAN CORPUSCULAR HGB CONC 31 g/dL (32-36); MEAN CORPUSCULAR VOLUME 83 fL (80-99); MEAN PLATELET VOLUME 10.4 fL (9.0-12.2); PLATELET COUNT 305 10^3/uL (130-400); WHITE BLOOD COUNT 14.8 10^3/uL (4.3-11.0)
[2021-01-25] MEDS: CATHETER FLUSH 10 ML SYR IV SCH ×3 (06:27→19:45)
[2021-01-25 08:16] VITALS: BP 111/65
[2021-01-25] MEDS: dexAMETHasone 6 MG TAB (DECADRON) PO SCH (09:07)
[2021-01-25] MEDS: RT--FLUTICASONE/SALMETEROL 232-14 (AIRDUO RespiCLICK) IH SCH ×2 (09:45→20:29)
--- NOTE | 2021-01-25 12:04 | Progress Note - Hospitalist ---
Subjective HPI/CC On Admission Date Seen by Provider: Jan 25, 2021 Time Seen by Provider: 12:01 Pt is a 40yoF with no known PMH who presented to the ER due to shortness of breath and cough. She has been symptomatic for 10 days. She was diagnosis with COVID on 01/15 and was seen in the ER on 01/16. The ER physician prescribed her Ivermectin. This was not filled. She presented this morning because her sats were 83% at home. She was hypoxic on arrival to the Er as well and is being admitted. She has many COVID related symptoms. She complains of fever, chills, cough, diarrhea, loss of appetite. She is unvaccinated against COVID19. Subjective/Events-last exam Pt reports doing well. Still having coughing fits though. Objective Exam Vital Signs Vital Signs Date Time Temp Pulse Resp B/P (MAP) Pulse Ox O2 Delivery O2 Flow Rate FiO2 01/25/21 09:55 98 High Flow N/C 5.00 01/25/21 09:45 45 01/25/21 08:16 36.6 63 20 111/65 (80) Capillary Refill : Less Than 3 Seconds General Appearance: No Apparent Distress, WD/WN, Obese Respiratory: Lungs Clear, No Respiratory Distress Cardiovascular: Regular Rate, Rhythm, No Murmur Neurologic/Psychiatric: Alert, Oriented x3 Results/Procedures Lab Laboratory Tests 01/25/21 06:15 Patient resulted labs reviewed. Imaging: Reviewed Imaging Report Assessment/Plan Assessment and Plan Assess & Plan/Chief Complaint Acute Respiratory failure due to COVID19 Decadron s/p Actemra IS MAT protocol supportive measures Convalescent plasma unavailable as [place] no longer collecting it Lovenox for DVT ppx CTA ordered, but unable to take down on Vapotherm Dopplers of lower extremities negative d dimer is 0.56 though so VTE less likely Off Vapotherm and on 5lpm NC- hopeful for discharge over the next couple of days if she continues to do well Very slow recovery though is improving somewhat every day Critical Care Critically Ill Patient Diagnosis/Problems Diagnosis/Problems (1) Acute respiratory failure (2) Coronavirus infection MAYKEL MINA MD Jan 25, 2021 12:04
[2021-01-25] MEDS: BENZONATATE 100 MG (TESSALON) CAPSULE PO PRN ×2 (12:18→19:44)
[2021-01-25 16:00] VITALS: BP 120/73
[2021-01-25] MEDS: ENOXAPARIN 40 MG/0.4 ML (LOVENOX) SYR SC SCH (17:29)
[2021-01-26 00:04] VITALS: BP 101/59
[2021-01-26] MEDS: guaiFENesin SYRUP 100 MG/5 ML 10 ML (ROBITUSSIN SF) PO PRN ×4 (00:10→19:42)
[2021-01-26] MEDS: CATHETER FLUSH 10 ML SYR IV SCH ×3 (05:30→19:41)
[2021-01-26 07:04] LABS: HEMATOCRIT 36 % (35-52); HEMOGLOBIN 10.9 g/dL (11.5-16.0); MEAN CORPUSCULAR HEMOGLOBIN 25 pg (25-34); MEAN CORPUSCULAR HGB CONC 30 g/dL (32-36); MEAN CORPUSCULAR VOLUME 83 fL (80-99); MEAN PLATELET VOLUME 10.9 fL (9.0-12.2); PLATELET COUNT 292 10^3/uL (130-400); WHITE BLOOD COUNT 12.1 10^3/uL (4.3-11.0)
[2021-01-26] MEDS: RT--FLUTICASONE/SALMETEROL 232-14 (AIRDUO RespiCLICK) IH SCH ×2 (07:47→21:04)
[2021-01-26] MEDS: RT-ALBUTEROL HFA 8.5 GM INHALER IH PRN (07:47)
[2021-01-26 08:00] VITALS: BP 107/57
[2021-01-26] MEDS: IBUPROFEN 600 MG (MOTRIN) TAB PO PRN (08:42)
[2021-01-26] MEDS: dexAMETHasone 6 MG TAB (DECADRON) PO SCH (08:42)
[2021-01-26] MEDS: BENZONATATE 100 MG (TESSALON) CAPSULE PO PRN ×2 (08:42→19:42)
--- NOTE | 2021-01-26 12:12 | Progress Note - Hospitalist ---
Subjective HPI/CC On Admission Date Seen by Provider: Jan 26, 2021 Time Seen by Provider: 09:45 Pt is a 40yoF with no known PMH who presented to the ER due to shortness of breath and cough. She has been symptomatic for 10 days. She was diagnosis with COVID on 01/15 and was seen in the ER on 01/16. The ER physician prescribed her Ivermectin. This was not filled. She presented this morning because her sats were 83% at home. She was hypoxic on arrival to the Er as well and is being admitted. She has many COVID related symptoms. She complains of fever, chills, cough, diarrhea, loss of appetite. She is unvaccinated against COVID19. Subjective/Events-last exam She is doing better. She denies shortness of breath. She still has a cough. She is not having fevers. She is eating and drinking well. She has been up and moving around. Objective Exam Vital Signs Vital Signs Date Time Temp Pulse Resp B/P (MAP) Pulse Ox O2 Delivery O2 Flow Rate FiO2 01/26/21 10:48 74 94 5.00 94 01/26/21 08:00 High Flow N/C 01/26/21 08:00 35.9 20 107/57 (74) 01/25/21 09:45 45 Capillary Refill : Less Than 3 Seconds General Appearance: No Apparent Distress, Obese Respiratory: Lungs Clear, Normal Breath Sounds, No Respiratory Distress Cardiovascular: Regular Rate, Rhythm, No Edema, No Murmur Gastrointestinal: Normal Bowel Sounds, Non Tender, Soft Extremity: Normal Inspection, Non Tender, No Pedal Edema Neurologic/Psychiatric: Alert, Oriented x3, No Motor/Sensory Deficits, Normal Mood/Affect Skin: Normal Color, Warm/Dry Results/Procedures Lab Laboratory Tests 01/26/21 06:51 Patient resulted labs reviewed. Imaging: Reviewed Imaging Report Assessment/Plan Assessment and Plan Assess & Plan/Chief Complaint Acute respiratory failure due to COVID-19 Continue Decadron Status post Actemra Continue prophylactic Lovenox Currently on 5 L nasal cannula Weaning oxygen as able Diagnosis/Problems Diagnosis/Problems (1) Acute respiratory failure due to COVID-19 Status: Acute (2) Pneumonia due to COVID-19 virus Status: Acute TERESA SINGLETARY MD Jan 26, 2021 12:12
[2021-01-26] MEDS: ENOXAPARIN 40 MG/0.4 ML (LOVENOX) SYR SC SCH (16:15)
[2021-01-26 16:45] VITALS: BP 125/71
[2021-01-27 00:03] VITALS: BP 117/72
[2021-01-27] MEDS: guaiFENesin SYRUP 100 MG/5 ML 10 ML (ROBITUSSIN SF) PO PRN ×3 (00:20→12:20)
[2021-01-27] MEDS: CATHETER FLUSH 10 ML SYR IV SCH ×2 (05:25→14:46)
[2021-01-27] MEDS: BENZONATATE 100 MG (TESSALON) CAPSULE PO PRN (05:25)
[2021-01-27 06:08] LABS: HEMATOCRIT 35 % (35-52); HEMOGLOBIN 10.7 g/dL (11.5-16.0); MEAN CORPUSCULAR HEMOGLOBIN 26 pg (25-34); MEAN CORPUSCULAR HGB CONC 31 g/dL (32-36); MEAN CORPUSCULAR VOLUME 83 fL (80-99); MEAN PLATELET VOLUME 10.6 fL (9.0-12.2); PLATELET COUNT 285 10^3/uL (130-400); WHITE BLOOD COUNT 12.9 10^3/uL (4.3-11.0)
[2021-01-27] MEDS: RT--FLUTICASONE/SALMETEROL 232-14 (AIRDUO RespiCLICK) IH SCH (07:31)
[2021-01-27 08:00] VITALS: BP 108/65
[2021-01-27] MEDS: dexAMETHasone 6 MG TAB (DECADRON) PO SCH (08:56)
[2021-01-27 16:00] VITALS: BP 110/61
[2021-01-27] MEDS: ENOXAPARIN 40 MG/0.4 ML (LOVENOX) SYR SC SCH (17:30)
[2021-01-27 19:06] VITALS: BP 110/61
--- NOTE | 2021-01-27 19:46 | Discharge Summary ---
Discharge Summary Hospital Course Was the Problem List Reviewed?: Yes Problems/Dx: (1) Acute respiratory failure due to COVID-19 Status: Acute (2) Pneumonia due to COVID-19 virus Status: Acute Hospital Course Date of Admission: Jan 18, 2021 at 14:47 Admission Diagnosis : Acute respiratory failure due to COVID-19 Family Physician/Provider: Mariah,Local Physician Date of Discharge: 01/27/21 Discharge Diagnosis: Acute respiratory failure due to COVID-19 Hospital Course: Nathan Alvarez is a 40 year old female admitted with acute respiratory failure due to COVID-19. She was treated with Decadron and Actemra. She was on Vapotherm initially, but her oxygen requirement improved. An oxygen evaluation revealed a requirement of 5 L continuously. She was set up with home oxygen. She was di scharged home in stable condition. She needs to establish with a primary care physician. Labs and Pending Lab Test: Laboratory Tests 01/27/21 05:45: White Blood Count 12.9H, Red Blood Count 4.19, Hemoglobin 10.7L, Hematocrit 35, Mean Corpuscular Volume 83, Mean Corpuscular Hemoglobin 26, Mean Corpuscular Hemoglobin Concent 31L, Red Cell Distribution Width 15.0H, Platelet Count 285, Mean Platelet Volume 10.6 Microbiology 01/24/21 C. difficile GDH Antigen & Toxins - Final, Complete Home Meds Active Reported Tums Ultra (Calcium Carbonate) 400 Mg Tab.chew 400-800 Mg PO UD PRN Claritin (Loratadine) 10 Mg Tablet 10 Mg PO DAILY PRN Tylenol Extra Strength (Acetaminophen) 500 Mg Tablet 500-1,000 Mg PO Q8H PRN Ibuprofen 200 Mg Tablet 400-600 Mg PO Q8H PRN Budesonide-Formoterol 160-4.5 (Budesonide/Formoterol Fumarate) 10.2 Gm Hfa.aer.ad 1 Puff INH BID Assessment/Pt Instructions Take medications as prescribed. Follow up wih your PCP. Return with worsening symptoms. Discharge Planning: <30 minutes discharge planning Discharge Instructions Discharge Diet: No Restrictions Activity as Tolerated: Yes Discharge Physical Examination Vital Signs Vital Signs Date Time Temp Pulse Resp B/P (MAP) Pulse Ox O2 Delivery O2 Flow Rate FiO2 01/27/21 19:06 36.1 75 20 110/61 98 High Flow N/C 5.00 01/25/21 09:45 45 General Appearance: No Apparent Distress, Obese Respiratory: Lungs Clear, Normal Breath Sounds, No Respiratory Distress Cardiovascular: Regular Rate, Rhythm, No Edema, No Murmur Gastrointestinal: Normal Bowel Sounds, Non Tender, Soft Extremity: Normal Inspection, Non Tender, No Pedal Edema Skin: Normal Color, Warm/Dry Neurologic/Psychiatric: Alert, Oriented x3, No Motor/Sensory Deficits, Normal Mood/Affect Allergies: Coded Allergies: No Known Drug Allergies (Unverified , 01/16/21) Discharge Summary Date of Admission Jan 18, 2021 at 14:47 Date of Discharge Jan 27, 2021 at 18:30 Discharge Date: Jan 27, 2021 Discharge Time: 18:30 Admission Diagnosis Acute Respiratory failure due to COVID19 Comfort Measures/ Time spent on discussion (min): 0 Discharge Diagnosis Acute respiratory failure due to COVID-19 (1) Acute respiratory failure due to COVID-19 Status: Acute (2) Pneumonia due to COVID-19 virus Status: Acute TERESA SINGLETARY MD Jan 27, 2021 19:45
== END 2021-01-27 18:30 | disposition home or self-care (01) | DRG 177 ==
LOC: EDUNIT# 07:48 → ER FS 07:52 → 4TH 14:47
PROVIDERS: ADMIT Family Medicine; ATTEND Family Medicine
PROC: XW033E5 Introduction of Remdesivir Anti-infective into Peripheral Vein, Percutaneous Approach, New Technology Group 5 (ICD-10-PCS; principal; 2021-01-18)
DX: U07.1 COVID-19 (principal); J96.01 Acute respiratory failure with hypoxia; J12.82 Pneumonia due to coronavirus disease 2019
CPT/HCPCS: 36415; 36600; 71045; 80053; 82274; 82805; 83605; 84145; 85007; 85027; 85379; 86141; 87324; 87449; 93970; 94640; 94664; 94760; 94761; 96374

== ENCOUNTER 2021-02-10 14:00 | Inpatient (IN) | payer BC ==
[~2021-02-10] VITALS: Ht 172.7 cm; Wt 97.9 kg
[~2021-02-10 14:00] MED LIST changes: +ACET-2267 PO; +BUDE10.26 INH; +CALC10009 PO; +IBUP-2473 PO; +LORA10TA76 PO
--- NOTE | 2021-02-10 14:36 | ED Cough/URI ---
General Chief Complaint: Fever-Adult/Adol Stated Complaint: FEVER Source: patient, family Exam Limitations: no limitations History of Present Illness Date Seen by Provider: Feb 10, 2021 Time Seen by Provider: 14:25 Initial Comments 40-year-old female presents complaint of fever today. Patient discharged from [facility] on 27 January after being admitted 10 days with Covid pneumonia. Seen in this ER myself prior to her hospitalization so we know her recent past medical history pretty well. Patient is on 5 L of oxygen per nasal cannula with good oxygen saturations and states over the last 2 days she has been feeling the best she has in a few weeks. Currently on no medication other than albuterol and steroid inhalers. Appetite is normal and taking normal vital fluid. Denies abdominal pain nausea or vomiting Allergies and Home Medications Allergies Coded Allergies: sulfamethoxazole (Verified Allergy, Unknown, 02/10/21) trimethoprim (Verified Allergy, Unknown, 02/10/21) Home Medications Acetaminophen 500 Mg Tablet, 500-1,000 MG PO Q8H PRN for PAIN-MILD (1-4), (Reported) Budesonide/Formoterol Fumarate 10.2 Gm Hfa.aer.ad, 1 PUFF INH BID, (Reported) Calcium Carbonate 400 Mg Tab.chew, 400-800 MG PO UD PRN for INDIGESTION, (Reported) Ibuprofen 200 Mg Tablet, 400-600 MG PO Q8H PRN for PAIN-MILD (1-4), (Reported) Loratadine 10 Mg Tablet, 10 MG PO DAILY PRN for ALLERGY SYMPTOMS, (Reported) Patient Home Medication List Home Medication List Reviewed: Yes Review of Systems Review of Systems Constitutional: No diaphoresis; fever; No malaise, No weakness EENTM: no symptoms reported Respiratory: No cough; short of breath (but improving) Cardiovascular: No chest pain, No edema, No palpitations Gastrointestinal: No abdominal pain, No nausea, No vomiting Musculoskeletal: No back pain, No joint pain Skin: No change in color, No rash Past Qviwibs-Ukxxhw-Okjxoi Hx Patient Social History Tobacco Use?: No Past Medical History Surgery/Hospitalization HX: C/S x 1, Tubal ligation Physical Exam Vital Signs - First Documented 02/10/21 02/10/21 14:05 14:33 Temp 38.5 Pulse 122 Resp 24 B/P (MAP) 139/79 (99) Pulse Ox 99 O2 Delivery Room Air O2 Flow Rate 5.00 Capillary Refill : Height: '" Weight: lbs. oz. kg; 34.43 BMI Method: General Appearance: WD/WN, no apparent distress HEENT: PERRL/EOMI, normal ENT inspection Neck: non-tender, supple Respiratory: chest non-tender, lungs clear, normal breath sounds, no respiratory distress, no accessory muscle use Cardiovascular: no edema, no gallop, no JVD, tachycardia Gastrointestinal: normal bowel sounds, non tender, soft Extremities: normal range of motion, non-tender, no pedal edema Neurologic/Psychiatric: no motor/sensory deficits, alert, normal mood/affect Skin: normal color, warm/dry Progress/Results/Core Measures Suspected Sepsis SIRS Temperature: Pulse: Respiratory Rate: Laboratory Tests 02/10/21 14:16: White Blood Count 16.3H Blood Pressure / Mean: Laboratory Tests 02/10/21 14:16: Creatinine 0.58L, Platelet Count 346, Total Bilirubin 0.8 Results/Orders Lab Results Laboratory Tests Test 02/10/21 14:16 Range/Units White Blood Count 16.3 H 4.3-11.0 10^3/uL Red Blood Count 3.47 L 3.80-5.11 10^6/uL Hemoglobin 8.9 L 11.5-16.0 g/dL Hematocrit 29 L 35-52 % Mean Corpuscular Volume 84 80-99 fL Mean Corpuscular Hemoglobin 26 25-34 pg Mean Corpuscular Hemoglobin Concent 30 L 32-36 g/dL Red Cell Distribution Width 17.0 H 10.0-14.5 % Platelet Count 346 130-400 10^3/uL Mean Platelet Volume 10.5 9.0-12.2 fL Immature Granulocyte % (Auto) 1 % Neutrophils (%) (Auto) 85 H 42-75 % Lymphocytes (%) (Auto) 6 L 12-44 % Monocytes (%) (Auto) 7 0-12 % Eosinophils (%) (Auto) 1 0-10 % Basophils (%) (Auto) 0 0-10 % Neutrophils # (Auto) 13.8 H 1.8-7.8 X 10^3 Lymphocytes # (Auto) 1.1 1.0-4.0 X 10^3 Monocytes # (Auto) 1.2 H 0.0-1.0 X 10^3 Eosinophils # (Auto) 0.1 0.0-0.3 10^3/uL Basophils # (Auto) 0.0 0.0-0.1 10^3/uL Immature Granulocyte # (Auto) 0.2 H 0.0-0.1 10^3/uL Neutrophils % (Manual) 78 % Lymphocytes % (Manual) 2 % Monocytes % (Manual) 8 % Eosinophils % (Manual) 0 % Basophils % (Manual) 0 % Myelocytes % 1 % Band Neutrophils 7 % Atypical Lymphocytes 4 % Platelet Estimate NORMAL Hypochromasia 1+ Poikilocytosis 1+ Elliptocytes SLIGHT D-Dimer 7.69 H 0.00-0.49 UG/ML Sodium Level 130 L 135-145 MMOL/L Potassium Level 3.8 3.6-5.0 MMOL/L Chloride Level 88 L 98-107 MMOL/L Carbon Dioxide Level 32 21-32 MMOL/L Anion Gap 10 5-14 MMOL/L Blood Urea Nitrogen 5 L 7-18 MG/DL Creatinine 0.58 L 0.60-1.30 MG/DL Estimat Glomerular Filtration Rate 114 BUN/Creatinine Ratio 9 Glucose Level 125 H 70-105 MG/DL Calcium Level 8.6 8.5-10.1 MG/DL Corrected Calcium 9.4 8.5-10.1 MG/DL Total Bilirubin 0.8 0.1-1.0 MG/DL Aspartate Amino Transf (AST/SGOT) 24 5-34 U/L Alanine Aminotransferase (ALT/SGPT) 27 0-55 U/L Alkaline Phosphatase 214 H 40-136 U/L C-Reactive Protein 25.63 H <0.50 MG/DL Total Protein 7.4 6.4-8.2 GM/DL Albumin 3.0 L 3.2-4.5 GM/DL My Orders Orders - ROVENSTINE,MONICO L DO Cbc With Automated Diff (02/10/21 14:34) Comprehensive Metabolic Panel (02/10/21 14:34) Fibrin Degradation Products (02/10/21 14:34) Chest 1 View Ap/Pa Only (02/10/21 14:34) Crp Fs (02/10/21 14:34) Ed Iv/Invasive Line Start (02/10/21 14:34) Ns Iv 1000 Ml (Sodium Chloride 0.9%) (02/10/21 14:45) Manual Differential (02/10/21 14:16) Blood Culture (02/10/21 15:20) Blood Culture (02/10/21 14:18) Ct Angio Chest W (02/10/21 15:30) Iohexol Injection (Omnipaque 350 Mg/Ml 1 (02/10/21 16:00) Received Contrast (Hold Metformin- Contr (02/10/21 16:00) Sodium Chloride Flush (Catheter Flush Sy (02/10/21 16:00) Ns (Ivpb) (Sodium Chloride 0.9% Ivpb Bag (02/10/21 16:00) Medications Given in ED Current Medications Medications Dose Ordered Sig/Audie Route Start Time Stop Time Status Last Admin Dose Admin Iohexol 100 ml ONCE ONCE IV 02/10/21 16:00 02/10/21 16:22 DC 02/10/21 16:15 100 ML Sodium Chloride 10 ml NEEDED PRN IV 02/10/21 16:00 02/10/21 16:15 10 ML Sodium Chloride 100 ml ONCE ONCE IV 02/10/21 16:00 02/10/21 16:22 DC 02/10/21 16:15 100 ML Vital Signs/I&O 02/10/21 02/10/21 14:05 14:33 Temp 38.5 Pulse 122 Resp 24 B/P (MAP) 139/79 (99) Pulse Ox 99 O2 Delivery Room Air Nasal Cannula O2 Flow Rate 5.00 Capillary Refill : Diagnostic Imaging Diagonstic Imaging: Xray Plain Films/CT/US/NM/MRI: chest Comments ndication: Cough, fever, shortness of breath Comparison: 01/18/2021 Findings: Single view of the chest demonstrates new large left-sided effusion. Infiltrates persist. There is no pneumothorax. The heart is enlarged. Osseous structures are age-appropriate. Impression: New large left-sided effusion. Dictated on workstation # [id number] Dict: 02/10/21 1524 Trans: 02/10/21 1525 CV [id number] Interpreted by: RYAN FERMIN Electronically signed by: IMPRESSION: 1. No evidence of acute pulmonary embolus to the lobar division of pulmonary arteries. 2. Massive left-sided pleural effusion resulting in near complete atelectasis of the left upper and lower lobes as well as left to right midline shift of the cardiomediastinal structures. This does raise concern for potential tension. Thoracentesis is recommended 3. Background scattered groundglass infiltrate consistent with provided clinical history of COVID pneumonia. 4. Enlargement of the main coronary arterial trunk. Findings can be seen with underlying pulmonary arterial hypertension Dictated on workstation # [id number] Dict: 02/10/21 1627 Trans: 02/10/21 1633 CVB [id number] Interpreted by: RICHARD LEA MD Electronically signed by: Departure Communication (Admissions) Time/Spoke to Admitting Phy: 17:[address] Trinh re pt HPI with onset Covid Sx and + testing 10 January w subsequent ER visits and ultimately hospitalized for about 10 days (-Jan). Sent home on 5 liters oxygen/nc. Followed up with [facility] last week and conveyed having chest pain (no CXR done). Large pleural effusion per CXR and CT Dr Trinh requests surgical consult for thoracentesis. Time/Spoke to Consulting Phy: 17:04 spoke to Gen Surg, Dr Roman, who agrees to see pt tomorrow in consultation for Pleural effusion and likely thoracentesis Impression Primary Impression: Pleural effusion on left Additional Impression: Hypoxia Disposition: 30 STILL A PATIENT Condition: Stable Admissions Decision to Admit Reason: Admit from ER (General) Decision to Admit/Date: Feb 10, 2021 Time/Decision to Admit Time: 15:30 Departure-Patient Inst. Referrals: NO,LOCAL PHYSICIAN (PCP/Family) Primary Care Physician MONICO COLON DO Feb 10, 2021 14:36
[2021-02-10 14:43] LABS: HEMATOCRIT 29 % (35-52); HEMOGLOBIN 8.9 g/dL (11.5-16.0); LYMPHOCYTES % (AUTO) 6 % (12-44); MEAN CORPUSCULAR HEMOGLOBIN 26 pg (25-34); MEAN CORPUSCULAR HGB CONC 30 g/dL (32-36); MEAN CORPUSCULAR VOLUME 84 fL (80-99); MEAN PLATELET VOLUME 10.5 fL (9.0-12.2); PLATELET COUNT 346 10^3/uL (130-400); WHITE BLOOD COUNT 16.3 10^3/uL (4.3-11.0)
[2021-02-10 14:44] LABS: BASOPHILS % (AUTO) 0 % (0-10); EOSINOPHILS # (AUTO) 0.1 10^3/uL (0.0-0.3); EOSINOPHILS % (AUTO) 1 % (0-10); LYMPHOCYTES # (AUTO) 1.1 X 10^3 (1.0-4.0); MONOCYTES # (AUTO) 1.2 X 10^3 (0.0-1.0); MONOCYTES % (AUTO) 7 % (0-12); NEUTROPHILS # (AUTO) 13.8 X 10^3 (1.8-7.8); NEUTROPHILS % (AUTO) 85 % (42-75)
[2021-02-10] MEDS ORDERED: NS IV 1000 ML 1,000 ML IV SCH (14:45)
[2021-02-10 14:59] LABS: POTASSIUM 3.8 MMOL/L (3.6-5.0)
[2021-02-10 15:00] LABS: BILIRUBIN,TOTAL 0.8 MG/DL (0.1-1.0); CALCIUM 8.6 MG/DL (8.5-10.1); CREATININE SERUM 0.58 MG/DL (0.60-1.30)
[2021-02-10 15:01] LABS: TOTAL PROTEIN 7.4 GM/DL (6.4-8.2)
[2021-02-10 15:06] LABS: ATYPICAL LYMPHOCYTES 4 %; BAND NEUTROPHILS 7 %; BASOPHILS % (MANUAL) 0 %; EOSINOPHILS % (MANUAL) 0 %; LYMPHOCYTES % (MANUAL) 2 %; MONOCYTES % (MANUAL) 8 %; MYELOCYTES % 1 %; NEUTROPHILS % (MANUAL) 78 %
[2021-02-10 15:07] LABS: ELLIPT/OVALOCYTES SLIGHT; HYPOCHROMASIA 1+; PLATELET ESTIMATE NORMAL; POIKILOCYTOSIS 1+
--- NOTE | 2021-02-10 15:26 | Diagnostic Imaging Report ---
Indication: Cough, fever, shortness of breath Comparison: 01/18/2021 Findings: Single view of the chest demonstrates new large left-sided effusion. Infiltrates persist. There is no pneumothorax. The heart is enlarged. Osseous structures are age-appropriate. Impression: New large left-sided effusion. Dictated by: Dictated on workstation # [id number]
[2021-02-10] MEDS ORDERED: IOHEXOL 350 MG/ML 100 ML (OMNIPAQUE 350) VIAL IV ONE (16:00)
[2021-02-10] MEDS ORDERED: HOLD METFORMIN - RECEIVED CONTRAST 20 ML VIAL IV SCH (16:00)
[2021-02-10] MEDS ORDERED: NS 100 ML (IVPB) BAG IV ONE (16:00)
[2021-02-10] MEDS ORDERED: CATHETER FLUSH 10 ML SYR IV PRN (16:00)
--- NOTE | 2021-02-10 16:34 | Diagnostic Imaging Report ---
PROCEDURE: CT angiography of the chest with contrast. TECHNIQUE: Multiple contiguous axial images were obtained through the chest after uneventful bolus administration of intravenous contrast. 3D reconstructed CTA MIP acquisitions were also performed. Auto Exposure Controls were utilized during the CT exam to meet ALARA standards for radiation dose reduction. INDICATION: Hypoxia. Fever. History of COVID pneumonia. Elevated D-dimer. COMPARISON: Chest radiograph from earlier same day FINDINGS: There is no convincing evidence of acute pulmonary embolus to the lobar division of the pulmonary arteries. Evaluation beyond this is suboptimal secondary to motion artifact and poor opacification by the contrast bolus, particularly on the left. Main pulmonary arterial trunk is prominent at 3.5 cm in diameter. Thoracic aorta is normal in course and caliber. By NASCET criteria, there is no focal significant stenosis. There is no evidence of dissection. Heart size is within normal limits. There is no large pericardial effusion. Several slightly prominent appearing mediastinal lymph nodes are noted. No abnormal axillary adenopathy is seen. Evaluation of lung bartlett demonstrates massive left-sided pleural effusion with near complete atelectatic collapse of the left upper and left lower lobes. There is also mild left to right midline shift of the cardiomediastinal structures. Evaluation remainder of the aerated portions of the lungs demonstrates scattered areas of geographic groundglass density throughout. Findings are consistent with provided clinical history of COVID pneumonia. There is no large effusion on the right. No pneumothorax is seen on either side. Please note, pulmonary nodule or mass may be obscured. Osseous structures show age-related degenerative changes. No acute osseous abnormality is seen. Included portions of the upper abdomen are unremarkable as well. IMPRESSION: 1. No evidence of acute pulmonary embolus to the lobar division of pulmonary arteries. 2. Massive left-sided pleural effusion resulting in near complete atelectasis of the left upper and lower lobes as well as left to right midline shift of the cardiomediastinal structures. This does raise concern for potential tension. Thoracentesis is recommended 3. Background scattered groundglass infiltrate consistent with provided clinical history of COVID pneumonia. 4. Enlargement of the main coronary arterial trunk. Findings can be seen with underlying pulmonary arterial hypertension Dictated by: Dictated on workstation # [id number]
[2021-02-10 20:00] VITALS: BP 129/83
[2021-02-10] MEDS: NS IV 1000 ML 1,000 ML IV SCH (20:36)
[2021-02-10 23:15] VITALS: BP 118/72
[2021-02-11 04:53] VITALS: BP 121/72
[2021-02-11] MEDS: NS IV 1000 ML 1,000 ML IV SCH ×2 (05:32→16:18)
[2021-02-11 06:39] LABS: BASOPHILS % (AUTO) 0 % (0-10); EOSINOPHILS # (AUTO) 0.1 10^3/uL (0.0-0.3); EOSINOPHILS % (AUTO) 1 % (0-10); HEMATOCRIT 25 % (35-52); HEMOGLOBIN 7.5 g/dL (11.5-16.0); LYMPHOCYTES # (AUTO) 1.1 10^3/uL (1.0-4.0); LYMPHOCYTES % (AUTO) 8 % (12-44); MEAN CORPUSCULAR HEMOGLOBIN 26 pg (25-34); MEAN CORPUSCULAR HGB CONC 30 g/dL (32-36); MEAN CORPUSCULAR VOLUME 87 fL (80-99); MEAN PLATELET VOLUME 10.8 fL (9.0-12.2); MONOCYTES # (AUTO) 1.3 10^3/uL (0.0-1.0); MONOCYTES % (AUTO) 10 % (0-12); NEUTROPHILS # (AUTO) 10.4 10^3/uL (1.8-7.8); NEUTROPHILS % (AUTO) 78 % (42-75); PLATELET COUNT 293 10^3/uL (130-400); WHITE BLOOD COUNT 13.3 10^3/uL (4.3-11.0)
[2021-02-11 06:51] LABS: CALCIUM 8.6 MG/DL (8.5-10.1); CREATININE SERUM 0.58 MG/DL (0.60-1.30); POTASSIUM 3.4 MMOL/L (3.6-5.0)
--- NOTE | 2021-02-11 07:37 | Consultation - Surgery ---
ALFONZO YOO 02/11/21 0737: History of Present Illness History of Present Illness Patient Consulted On(fernando/time) 02/11/21 07:30 Date Seen by Provider: Feb 11, 2021 Time Seen by Provider: 07:00 Reason for Visit: SOB History of Present Illness HPI: Patient is a 40 y/o female with a CC of SOB s/p COVID in early January. Patient reports she has felt a pressure on her left side over the last couple days. She went to the ER yesterday with a fever and SOB. Patient reports a non- productive cough x 2 daysPrior to this the patient pulled a muscle and popped a rib out from coughing. Patient describes the sensation as pressure alongside the back of her left chest without pain. The feeling is localized to the area without radiation. The pressure is worse when she lays on her left side. The sensation is constant throughout the day. Patient rates the pain as a 0/10 and discomfort as a 2/10. Patient is taking cyclobenzaprine 10 mg bid. SH: Patient reports a fair diet. Patient denies drugs, smoking, and alcohol. Works in [employer]. Allergies and Home Medications Allergies Coded Allergies: sulfamethoxazole (Verified Allergy, Unknown, 02/10/21) trimethoprim (Verified Allergy, Unknown, 02/10/21) Home Medications Acetaminophen 500 Mg Tablet, 500-1,000 MG PO Q8H PRN for PAIN-MILD (1-4), (Reported) Budesonide/Formoterol Fumarate 10.2 Gm Hfa.aer.ad, 1 PUFF INH BID, (Reported) Calcium Carbonate 400 Mg Tab.chew, 400-800 MG PO UD PRN for INDIGESTION, (Reported) Ibuprofen 200 Mg Tablet, 400-600 MG PO Q8H PRN for PAIN-MILD (1-4), (Reported) Loratadine 10 Mg Tablet, 10 MG PO DAILY PRN for ALLERGY SYMPTOMS, (Reported) Past Wparqkq-Jjpgga-Nimhjc Hx Patient Social History Smoking Status: Never a Smoker Alcohol Use?: No Have you traveled recently?: No Seasonal Allergies Seasonal Allergies: Yes Surgeries History of Surgeries: Yes Surgeries: Section (Two), Tubal Ligation Respiratory History of Respiratory Disorde: No Cardiovascular History of Cardiac Disorders: No Neurological History of Neurological Disord: No Reproductive System : No Genitourinary History of Genitourinary Disor: No Gastrointestinal History of Gastrointestinal Di: No Musculoskeletal History of Musculoskeletal Dis: No Endocrine History of Endocrine Disorders: No HEENT History of HEENT Disorders: No Loss of Vision: Denies Cancer History of Cancer: No Psychosocial History of Psychiatric Problem: No Integumentary History of Skin or Integumenta: No Blood Transfusions History of Blood Disorders: No Adverse Reaction to a Blood Tr: No Family Medical History Significant Family History: Cancer (Father had brain tumor, remaining noncontributory) Review of Systems-General Constitutional: fever; No weakness EENTM: No vision loss Respiratory: cough, short of breath Cardiovascular: No chest pain, No palpitations Gastrointestinal: No abdominal pain, No nausea, No vomiting Genitourinary: no symptoms reported : No Musculoskeletal: muscle pain (Near ribs) Psychiatric/Neurological: Denies Headache, Denies Weakness Physical Exam-General Problems Physical Exam Vital Signs Vital Signs - First Documented 02/10/21 02/10/21 14:05 14:33 Temp 38.5 Pulse 122 Resp 24 B/P (MAP) 139/79 (99) Pulse Ox 99 O2 Delivery Room Air O2 Flow Rate 5.00 Capillary Refill : Less Than 3 Seconds General Appearance: no apparent distress Eyes: Bilateral Eye Normal Inspection HEENT: PERRL/EOMI (EOMI intact, did not check pupils) Neck: non-tender, normal inspection; No lymphadenopathy (R), No lymphadenopathy (L) Respiratory: other (Muffled lung sounds over left lower lobe) Cardiovascular: normal peripheral pulses Peripheral Pulses: 2+ Dorsalis Pedis (R), 2+ Left Dors-Pedis (L), 2+ Radial Pulses (R), 2+ Radial Pulses (L) Extremities: swelling Neurologic/Psychiatric: other (CN 3-6 intact, others appear grossly intact) Skin: normal color Lymphatic: no adenopathy Data Review Labs Laboratory Tests 02/10/21 14:16: White Blood Count 16.3H, Red Blood Count 3.47L, Hemoglobin 8.9L, Hematocrit 29L, Mean Corpuscular Volume 84, Mean Corpuscular Hemoglobin 26, Mean Corpuscular Hemoglobin Concent 30L, Red Cell Distribution Width 17.0H, Platelet Count 346, Mean Platelet Volume 10.5, Immature Granulocyte % (Auto) 1, Neutrophils (%) (Auto) 85H, Lymphocytes (%) (Auto) 6L, Monocytes (%) (Auto) 7, Eosinophils (%) (Auto) 1, Basophils (%) (Auto) 0, Neutrophils # (Auto) 13.8H, Lymphocytes # (Auto) 1.1, Monocytes # (Auto) 1.2H, Eosinophils # (Auto) 0.1, Basophils # (Auto) 0.0, Immature Granulocyte # (Auto) 0.2H, Neutrophils % (Manual) 78, Lymphocytes % (Manual) 2, Monocytes % (Manual) 8, Eosinophils % (Manual) 0, Basophils % (Manual) 0, Myelocytes % 1, Band Neutrophils 7, Atypical Lymphocytes 4, Platelet Estimate NORMAL, Hypochromasia 1+, Poikilocytosis 1+, Elliptocytes SLIGHT, D-Dimer 7.69H, Sodium Level 130L, Potassium Level 3.8, Chloride Level 88L, Carbon Dioxide Level 32, Anion Gap 10, Blood Urea Nitrogen 5L, Creatinine 0.58L, Estimat Glomerular Filtration Rate 114, BUN/Creatinine Ratio 9, Glucose Level 125H, Calcium Level 8.6, Corrected Calcium 9.4, Total Bilirubin 0.8, Aspartate Amino Transf (AST/SGOT) 24, Alanine Aminotransferase (ALT/SGPT) 27, Alkaline Phosphatase 214H, C-Reactive Protein 25.63H, Total Protein 7.4, Albumin 3.0L 02/11/21 05:52: White Blood Count 13.3H, Red Blood Count 2.85L, Hemoglobin 7.5L, Hematocrit 25L, Mean Corpuscular Volume 87, Mean Corpuscular Hemoglobin 26, Mean Corpuscular Hemoglobin Concent 30L, Red Cell Distribution Width 17.2H, Platelet Count 293, Mean Platelet Volume 10.8, Immature Granulocyte % (Auto) 3, Neutrophils (%) (Auto) 78H, Lymphocytes (%) (Auto) 8L, Monocytes (%) (Auto) 10, Eosinophils (%) (Auto) 1, Basophils (%) (Auto) 0, Neutrophils # (Auto) 10.4H, Lymphocytes # (Aut o) 1.1, Monocytes # (Auto) 1.3H, Eosinophils # (Auto) 0.1, Basophils # (Auto) 0.0, Immature Granulocyte # (Auto) 0.3H, Sodium Level 135, Potassium Level 3.4L, Chloride Level 98, Carbon Dioxide Level 28, Anion Gap 9, Blood Urea Nitrogen 3L, Creatinine 0.58L, Estimat Glomerular Filtration Rate 114, BUN/Creatinine Ratio 5, Glucose Level 106H, Calcium Level 8.6 Assessment/Plan Assessment/Plan Assessment/Plan Assessment 1. Pleural effusion 2. S/p COVID Plan 1. Thoracentesis KYM BRODY DO 02/11/21 1109: History of Present Illness History of Present Illness Time Seen by Provider: 10:29 History of Present Illness Surgery asked to consult regarding SOB, pleural fluid. HPI per ED: 40-year-old female presents complaint of fever today. Patient discharged from [facility] on 27 January after being admitted 10 days with Covid pneumonia. Seen in this ER myself prior to her hospitalization so we know her recent past medical history pretty well. Patient is on 5 L of oxygen per nasal cannula with good oxygen saturations and states over the last 2 days she has been feeling the best she has in a few weeks. Currently on no medication other than albuterol and steroid inhalers. Appetite is normal and taking normal vital fluid. Denies abdominal pain nausea or vomiting When I saw pt this am she was up walking, but complained of SOB. She states it is not getting better, it is getting worse. She has not been able to breath well since she was diagnosed with Covid-January 10. Was actually in the hospital for 10 days and went home on 5L O2. Allergies and Home Medications Allergies Coded Allergies: sulfamethoxazole (Verified Allergy, Unknown, 02/10/21) trimethoprim (Verified Allergy, Unknown, 02/10/21) Home Medications Acetaminophen 500 Mg Tablet, 500-1,000 MG PO Q8H PRN for PAIN-MILD (1-4), (Repor hermes) Budesonide/Formoterol Fumarate 10.2 Gm Hfa.aer.ad, 1 PUFF INH BID, (Reported) Calcium Carbonate 400 Mg Tab.chew, 400-800 MG PO UD PRN for INDIGESTION, (Reported) Ibuprofen 200 Mg Tablet, 400-600 MG PO Q8H PRN for PAIN-MILD (1-4), (Reported) Loratadine 10 Mg Tablet, 10 MG PO DAILY PRN for ALLERGY SYMPTOMS, (Reported) Patient Home Medication List Home Medication List Reviewed: Yes Past Ioketkj-Zcucps-Jlakgb Hx Patient Social History Smoking Status: Never a Smoker Alcohol Use?: No Seasonal Allergies Seasonal Allergies: Yes Surgeries History of Surgeries: Yes Surgeries: Section (Two), Tubal Ligation Respiratory History of Respiratory Disorde: Yes (Covid changes in lung) Respiratory Disorders: Pneumonia, Pulmonary Fibrosis Cardiovascular History of Cardiac Disorders: No Neurological History of Neurological Disord: No Reproductive System : No Genitourinary History of Genitourinary Disor: No Gastrointestinal History of Gastrointestinal Di: No Musculoskeletal History of Musculoskeletal Dis: No Endocrine History of Endocrine Disorders: No HEENT History of HEENT Disorders: No Loss of Vision: Denies Hearing Impairment: Denies Cancer History of Cancer: No Psychosocial History of Psychiatric Problem: No Integumentary History of Skin or Integumenta: No Blood Transfusions History of Blood Disorders: No Adverse Reaction to a Blood Tr: No Family Medical History Significant Family History: Cancer (Father had brain tumor ) Review of Systems-General Constitutional: fever; No weakness EENTM: No vision loss, No epistaxis, No throat swelling Respiratory: cough; No hemoptysis; short of breath Cardiovascular: No chest pain, No palpitations Gastrointestinal: No abdominal pain, No nausea, No vomiting Genitourinary: No dysuria, No frequency, No hematuria : No Musculoskeletal: No joint pain; muscle pain (Near ribs); No muscle weakness Skin: No change in color, No change in hair/nails Psychiatric/Neurological: Denies Anxiety, Denies Depressed, Denies Headache, Denies Weakness Physical Exam-General Problems Physical Exam General Appearance: WD/WN, no apparent distress Eyes: Bilateral Eye PERRL, Bilateral Eye EOMI HEENT: pharynx normal; No scleral icterus (R), No scleral icterus (L) Neck: non-tender, normal inspection Respiratory: respiratory distress, decreased breath sounds; No crackles, No w heezing; other (Muffled lung sounds over left lower lobe, dullness to percussion Left) Cardiovascular: no murmur, tachycardia Peripheral Pulses: 2+ Dorsalis Pedis (R), 2+ Left Dors-Pedis (L), 2+ Radial Pulses (R), 2+ Radial Pulses (L) Gastrointestinal: non tender, soft, no organomegaly Back: vertebral tenderness (rib 10-11 on left) Extremities: no calf tenderness, swelling (ankles) Neurologic/Psychiatric: other (CN 3-6 intact, others appear grossly intact) Skin: normal color, warm/dry Lymphatic: no adenopathy (neck, axilla or groin) Data Review Radiology Date of Exam:02/10/21 CT ANGIO CHEST W PROCEDURE: CT angiography of the chest with contrast. TECHNIQUE: Multiple contiguous axial images were obtained through the chest after uneventful bolus administration of intravenous contrast. 3D reconstructed CTA MIP acquisitions were also performed. Auto Exposure Controls were utilized during the CT exam to meet ALARA standards for radiation dose reduction. INDICATION: Hypoxia. Fever. History of COVID pneumonia. Elevated D-dimer. COMPARISON: Chest radiograph from earlier same day FINDINGS: There is no convincing evidence of acute pulmonary embolus to the lobar division of the pulmonary arteries. Evaluation beyond this is suboptimal secondary to motion artifact and poor opacification by the contrast bolus, particularly on the left. Main pulmonary arterial trunk is prominent at 3.5 cm in diameter. Thoracic aorta is normal in course and caliber. By NASCET criteria, there is no focal significant stenosis. There is no evidence of dissection. Heart size is within normal limits. There is no large pericardial effusion. Several slightly prominent appearing mediastinal lymph nodes are noted. No abnormal axillary adenopathy is seen. Evaluation of lung bartlett demonstrates massive left-sided pleural effusion with near complete atelectatic collapse of the left upper and left lower lobes. There is also mild left to right midline shift of the cardiomediastinal structures. Evaluation remainder of the aerated portions of the lungs demonstrates scattered areas of geographic groundglass density throughout. Findings are consistent with provided clinical history of COVID pneumonia. There is no large effusion on the right. No pneumothorax is seen on either side. Please note, pulmonary nodule or mass may be obscured. Osseous structures show age-related degenerative changes. No acute osseous abnormality is seen. Included portions of the upper abdomen are unremarkable as well. IMPRESSION: 1. No evidence of acute pulmonary embolus to the lobar division of pulmonary arteries. 2. Massive left-sided pleural effusion resulting in near complete atelectasis of the left upper and lower lobes as well as left to right midline shift of the cardiomediastinal structures. This does raise concern for potential tension. Thoracentesis is recommended 3. Background scattered groundglass infiltrate consistent with provided clinical history of COVID pneumonia. 4. Enlargement of the main coronary arterial trunk. Findings can be seen with underlying pulmonary arterial hypertension Dictated by: Dictated on workstation # [id number] Dict: 02/10/21 1627 Trans: 02/10/211900 [facility] [id number] Interpreted by: RICHARD LEA MD Electronically signed by: RCIHARD LEA MD 02/10/211900 Assessment/Plan Assessment/Plan Assessment/Plan 1. Pleural effusion 2. S/p COVID 3. Pulmonary fibrosis secondary to Covid-19 infection Plan 1. Thoracentesis at bedside Discussed procedure with pt; risks and complications not limited to pain, bleeding, infection and worst case pneumothorax. All questions answered to pt's satisfaction. Will get consent for procedure. Supervisory-Addendum Brief Verification & Attestation Participated in pt care: history, MDM, physical Personally performed: exam, history, MDM, supervision of care Care discussed with: Medical Student Procedures: n/a Verification and Attestation of Medical Student E/M Service A medical student performed and documented this service. I then reviewed and verified all information documented by the medical student and made modifications to such information, when appropriate. I personally performed a physical exam, medical decision making and then discussed any differences between the notes and made revisions as necessary to create one note. Kym Brody , 02/11/21 , 11:19 ALFONZO YOO Feb 11, 2021 07:37 KYM BRODY DO Feb 11, 2021 11:09
[2021-02-11 08:00] VITALS: BP 110/65
[2021-02-11 12:00] VITALS: BP 141/71
--- NOTE | 2021-02-11 12:25 | Diagnostic Imaging Report ---
INDICATION: Pleural effusion and recent thoracentesis. AP upright view of the chest is obtained with comparison made to study of one day earlier. There is a large amount of left pleural fluid with bilateral atelectasis and presumed edema or pneumonitis. No pneumothorax is identified. IMPRESSION: Findings remain compatible with bilateral edema and/or pneumonitis with probable large left pleural effusion. Dictated by: Dictated on workstation # [id number]
--- NOTE | 2021-02-11 12:32 | Diagnostic Imaging Report ---
PROCEDURE: US Venous Lower Ext Rey. TECHNIQUE: Multiple real-time grayscale images were obtained over the lower extremities in various projections, bilaterally. Additional duplex Doppler and color Doppler images were also obtained. INDICATION: Elevated D-dimer. There is no evidence of right or left lower extremity DVT. Both lower extremity deep venous system shows normal compressibility with normal response to augmentation and Valsalva. No fluid collection or mass is detected. IMPRESSION: No evidence of right or left lower extremity DVT. Dictated by: Dictated on workstation # [id number]
--- NOTE | 2021-02-11 13:38 | History & Physical-Hospitalist ---
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 She had COVID about a month ago. She was discharged home with oxygen. Lately she has been needing a bit more oxygen with activity. She also reports some pressure on the left side of her chest. She denies any trauma. She has not noticed any worsening of her shortness of breath, but her oxygen drops when she takes it off to blow her nose. She continues to have cough. Source: patient Exam Limitations: no limitations Date Seen 02/11/21 Time Seen by a Provider: 09:35 Attending Physician Farhana Singletary MD PCP No,Local Physician Referring Physician Date of Admission Feb 10, 2021 at 18:25 Home Medications & Allergies Home Medications Reviewed patient Home Medication Reconciliation performed by pharmacy medication reconciliations screening technician and/or nursing. Patients Allergies have been reviewed. Allergies Allergies Coded Allergies sulfamethoxazole (Verified Allergy, Unknown, 02/10/21) trimethoprim (Verified Allergy, Unknown, 02/10/21) Past Vgfkrhl-Czoype-Gteagz Hx Patient Social History Tobacco Use?: No Smoking Status: Never a Smoker Use of E-Cig and/or Vaping dev: No Substance use?: No Alcohol Use?: No Pt feels they are or have been: No Immunizations Up To Date Tetanus Booster (TDap): Unknown Hepatitis A: No Hepatitis B: No Seasonal Allergies Seasonal Allergies: Yes Current Status Advance Directives: No Communicates: Verbally Primary Language: [place] Island[place] Preferred Spoken Language: [place] Is interpretation needed?: No Past Medical History Surgeries: Section (Two), Tubal Ligation Pneumonia, Pulmonary Fibrosis Loss of Vision: Denies Hearing Impairment: Denies Blood Disorders: No Adverse Reaction/Blood Tranf: No Family Medical History Cancer (Father had brain tumor ) Review of Systems Constitutional: fever EENTM: no symptoms reported Respiratory: cough, dyspnea on exertion, short of breath Cardiovascular: no symptoms reported Gastrointestinal: no symptoms reported Genitourinary: no symptoms reported Musculoskeletal: no symptoms reported Skin: no symptoms reported Psychiatric/Neurological: No Symptoms Reported Physical Exam Physical Exam Vital Signs Vital Signs - First Documented 02/10/21 02/10/21 14:05 14:33 Temp 38.5 Pulse 122 Resp 24 B/P (MAP) 139/79 (99) Pulse Ox 99 O2 Delivery Room Air O2 Flow Rate 5.00 Capillary Refill : Less Than 3 Seconds Height, Weight, BMI Height: '" Weight: lbs. oz. kg; 32.00 BMI Method: General Appearance: No Apparent Distress, Obese HEENT: PERRL/EOMI, Pharynx Normal Neck: Normal Inspection, Supple Respiratory: No Respiratory Distress, Decreased Breath Sounds Cardiovascular: Regular Rate, Rhythm, No Edema, No Murmur Gastrointestinal: Normal Bowel Sounds, Non Tender, Soft Extremity: Normal Inspection, Non Tender, No Pedal Edema Neurologic/Psychiatric: Alert, Oriented x3, No Motor/Sensory Deficits, Normal Mood/Affect Skin: Normal Color, Warm/Dry Results Results/Procedures Labs Laboratory Tests 02/10/21 14:16 02/11/21 05:52 Patient resulted labs reviewed. Imaging: Reviewed Imaging Report Assessment/Plan Admission Diagnosis Large pleural effusion Admission Status: Observation Assessment and Plan Large left pleural effusion Chest imaging with large left pleural effusion Surgery consulted, planning for throacentesis Fever Atelectasis Fever likely due to atelectasis Procalcitonin within normal limits No evidence of pneumonia on imaging Elevated d-dimer Hypercoagulable state associated with COVID-19 CTA negative for PE Venous dopplers negative for DVT Consider one month of therapeutic anticoagulation due to COVID related hypercoagulability Post-COVID syndrome Chronic respiratory failure with hypoxia Continue supplemental oxygen Obesity Cinically significant, no acute management needs Diagnosis/Problems Diagnosis/Problems (1) Pleural effusion on left Status: Acute (2) Fever Status: Acute (3) Atelectasis of left lung Status: Acute (4) Elevated d-dimer Status: Acute (5) Hypercoagulable state associated with COVID-19 Status: Acute (6) Post-COVID chronic dyspnea Status: Chronic FARHANA SINGLETARY MD Feb 11, 2021 13:38
--- NOTE | 2021-02-11 14:51 | Progress Note-Post Operative ---
Post-Operative Progess Note Surgeon (s)/Char Conveyor Tender (s) Surgeon KYM BRODY DO Char Conveyor Tender: none Pre-Operative Diagnosis Left sided Pleural effusion Post-Operative Diagnosis same Procedure & Operative Findings Date of Procedure 02/11/21 Procedure Performed/Findings Left Sided Thoracentesis PROCEDURE NOTE: After informed consent was obtained, the patient was in her room, sitting on side of bed; draped over table. Timeout peformed and acknowledgement of side noted. She was sterilely prepped and draped in normal fashion. She had previously been marked with the ultrasound probe, could see the fluid in pleural cavity. So, at this point, we then infiltrated local lidocaine somewhere in between 7-8 rib; midway between spine and axillary line. Next made a stab incision with #11 blade and then carefully inserted the Safe-T centesis needle over the top of the rib and into the pleural cavity, good flash of fluid, removed the needle. The catheter was then slid into the pleural cavity and then hooked up to the Vaccutainer. Immediately got out a dark straw colored fluid. Unfortunately, only abot 350ml came out. Tried to reposition the catheter to get more out, pt stated she did feel some relief and able to breathe a little better. At this point, elected to remove the catheter and it did look like possibly it had been crushed by the muscles between the ribs. I expected to get out somewhere between 1000-1500ml of fluid; at least. Will get a CXR to rule out pneumothorax. She tolerated procedure well; sponge, instrument and needle count correct. Anesthesia Type local lidocaine Estimated Blood Loss Estimated blood loss (mL): scant Specimens/Packing Specimens Removed 350ml straw colored fluid KYM BRODY DO Feb 11, 2021 14:51
[2021-02-11 15:34] VITALS: BP 123/60
[2021-02-11] MEDS ORDERED: CYCL10TA9 PO (15:41)
[2021-02-11 19:00] VITALS: BP 114/63
[2021-02-11 23:22] VITALS: BP 126/72
[2021-02-12] VITALS (9 sets, daily range): BP systolic 116–136; BP diastolic 58–73
[2021-02-12 05:12] LABS: BASOPHILS % (AUTO) 0 % (0-10); EOSINOPHILS # (AUTO) 0.1 10^3/uL (0.0-0.3); EOSINOPHILS % (AUTO) 1 % (0-10); HEMATOCRIT 26 % (35-52); HEMOGLOBIN 7.5 g/dL (11.5-16.0); LYMPHOCYTES # (AUTO) 1.1 10^3/uL (1.0-4.0); LYMPHOCYTES % (AUTO) 10 % (12-44); MEAN CORPUSCULAR HEMOGLOBIN 26 pg (25-34); MEAN CORPUSCULAR HGB CONC 29 g/dL (32-36); MEAN CORPUSCULAR VOLUME 88 fL (80-99); MEAN PLATELET VOLUME 10.7 fL (9.0-12.2); MONOCYTES # (AUTO) 1.2 10^3/uL (0.0-1.0); MONOCYTES % (AUTO) 10 % (0-12); NEUTROPHILS # (AUTO) 8.7 10^3/uL (1.8-7.8); NEUTROPHILS % (AUTO) 76 % (42-75); PLATELET COUNT 330 10^3/uL (130-400); WHITE BLOOD COUNT 11.4 10^3/uL (4.3-11.0)
[2021-02-12 05:31] LABS: POTASSIUM 3.3 MMOL/L (3.6-5.0)
[2021-02-12 05:32] LABS: CALCIUM 8.5 MG/DL (8.5-10.1)
[2021-02-12 05:37] LABS: CREATININE SERUM 0.58 MG/DL (0.60-1.30)
[2021-02-12] MEDS ORDERED: polyethylene glycoL POWDER 17 GM (MIRALAX) PACK PO PRN (07:45)
[2021-02-12] MEDS ORDERED: MELATONIN 3 MG TABLET PO PRN (07:45)
[2021-02-12] MEDS ORDERED: ANTACID SUSP 30 ML UDC (MYLANTA) PO PRN (07:45)
[2021-02-12] MEDS ORDERED: diphenhydrAMINE 25 MG TAB (BENADRYL) PO PRN (07:45)
[2021-02-12] MEDS ORDERED: ONDANSETRON 4 MG (ZOFRAN) ORAL DISSOLVE TAB PO PRN (07:45)
[2021-02-12] MEDS ORDERED: ONDANSETRON 4 MG/2 ML (SDV) Z0FRAN IV PRN (07:45)
[2021-02-12] MEDS: NS IV 1000 ML 1,000 ML IV SCH ×3 (08:36→20:25)
[2021-02-12] MEDS: FOLIC ACID 1 MG TAB PO SCH (08:36)
[2021-02-12] MEDS: KCL 20 MEQ TAB (K-DUR) PO SCH (08:36)
[2021-02-12] MEDS: MAGNESIUM 1 GM/100 ML IVPB 100 ML IV SCH (08:36)
[2021-02-12] MEDS: POTASSIUM CL 10MEQ/50ML IVPB 50 ML IV SCH ×4 (08:37→11:41)
--- NOTE | 2021-02-12 09:29 | Progress Note - Surgery ---
ALFONZO YOO 02/12/21 0929: Subjective Date Seen by a Provider: Feb 12, 2021 Time Seen by a Provider: 09:05 Subjective/Events-last exam Patient is 1 day s/p thoracentesis due to pleural effusion from COVID. Patient reports she is doing "a bit better" but still feels pressure on her left side. Patient reports continued SOB and discomfort. Patient is unable to lie down completely flat or on her left side. She is sleeping in a recliner due to feeling like she is "drowning" if she lays flat. Patient reports normal BM and urination. Patient is eating and walking well. Patient denies any discomfort from the procedure. Incision site is non-tender. Patient is amenable to undergoi ng another thoracentesis. Review of Systems General: No Chills, No Fatigue Pulmonary: Dyspnea, Cough Cardiovascular: No: Chest Pain, Palpitations Gastrointestinal: No: Nausea, Vomiting, Abdominal Pain, Diarrhea, Constipation Genitourinary: No Dysuria Musculoskeletal: back pain (Localized over the left posterolateral aspect of ribs 8-10) Neurological: No: Confusion Focused Exam Respiratory: No Respiratory Distress, Decreased Breath Sounds (Left-sided) Cardiovascular: Regular Rate, Rhythm, No Edema, No Murmur, Normal Peripheral Pulses, Tachycardia Peripheral Pulses: 2+ Dorsalis Pedis (R), 2+ Left Dors-Pedis (L), 2+ Radial Pulses (R), 2+ Radial Pulses (L) Skin: normal color, warm/dry Objective Exam Vital Signs Date Time Temp Pulse Resp B/P (MAP) Pulse Ox O2 Delivery O2 Flow Rate FiO2 02/12/21 07:44 96 Nasal Cannula 6.00 02/12/21 03:40 37.6 104 18 119/64 (82) 96 High Flow N/C 6.00 02/11/21 23:22 38.0 113 20 126/72 (90) 94 High Flow N/C 6.00 02/11/21 21:58 98 Nasal Cannula 5.00 02/11/21 20:12 Nasal Cannula 5.00 02/11/21 19:00 37.5 115 20 114/63 (80) 100 High Flow N/C 6.00 02/11/21 15:34 36.8 111 18 123/60 (81) 97 Nasal Cannula 5.00 02/11/21 12:00 37.0 113 20 141/71 (94) 90 Nasal Cannula 5.00 I & O 02/12/21 07:00 Intake Total 1747 ml Balance 1747 ml Capillary Refill : Less Than 3 Seconds General Appearance: No Apparent Distress, Obese HEENT: PERRL/EOMI Respiratory: No Respiratory Distress, Decreased Breath Sounds Cardiovascular: Regular Rate, Rhythm, No Edema, No Murmur, Tachycardia Peripheral Pulses: 2+ Dorsalis Pedis (R), 2+ Left Dors-Pedis (L), 2+ Radial Pulses (R), 2+ Radial Pulses (L) Gastrointestinal: normal bowel sounds, non tender, soft, no organomegaly Extremity: Normal Inspection, Non Tender, No Calf Tenderness, No Pedal Edema Neurologic/Psychiatric: Alert, Normal Mood/Affect Skin: Normal Color Results Lab Laboratory Tests 02/11/21 17:55: Stool Occult Blood Immunoassay NEGATIVE 02/12/21 04:15: White Blood Count 11.4H, Red Blood Count 2.94L, Hemoglobin 7.5L, Hematocrit 26L, Mean Corpuscular Volume 88, Mean Corpuscular Hemoglobin 26, Mean Corpuscular Hemoglobin Concent 29L, Red Cell Distribution Width 17.2H, Platelet Count 330, Mean Platelet Volume 10.7, Immature Granulocyte % (Auto) 3, Neutrophils (%) (Auto) 76H, Lymphocytes (%) (Auto) 10L, Monocytes (%) (Auto) 10, Eosinophils (%) (Auto) 1, Basophils (%) (Auto) 0, Neutrophils # (Auto) 8.7H, Lymphocytes # (Auto) 1.1, Monocytes # (Auto) 1.2H, Eosinophils # (Auto) 0.1, Basophils # (Auto) 0.0, Immature Granulocyte # (Auto) 0.4H, Sodium Level 136, Potassium Level 3.3L, Chloride Level 99, Carbon Dioxide Level 26, Anion Gap 11, Blood Urea Nitrogen 3L, Creatinine 0.58L, Estimat Glomerular Filtration Rate 114, BUN/Creatinine Ratio 5, Glucose Level 104, Calcium Level 8.5, Procalcitonin 0. 18H Microbiology 02/10/21 Blood Culture - Preliminary, Resulted No growth Assessment/Plan Assessment/Plan Assessment/Plan 1. Pleural effusion 2. S/p COVID 3. Pulmonary fibrosis secondary to Covid-19 infection Plan 1. Performed thoracentesis at bedside yesterday. Drained 300-400 mL and performed a repeat CXR. Repeat CXR still shows a large left-sided pleural effusion. 2. Perform repeat thoracentesis to attempt to drain more fluid. Discussed procedure with pt; risks and complications not limited to pain, bleeding, infection and worst case pneumothorax. All questions answered to pt's satisfaction. Will get consent for procedure. SARAVANAN ROMAN DO 02/12/21 1225: Subjective Time Seen by a Provider: 12:14 Subjective/Events-last exam Pt seen and examined, thinks her breathing is better; "I am on less O2". Review of Systems General: No Chills, No Fatigue Pulmonary: Dyspnea, Cough Cardiovascular: No: Chest Pain, Palpitations Gastrointestinal: No: Nausea, Vomiting, Abdominal Pain Objective Exam General Appearance: No Apparent Distress, Obese Respiratory: No Accessory Muscle Use, No Respiratory Distress, Decreased Breath Sounds Cardiovascular: No Murmur, Tachycardia Gastrointestinal: non tender, soft, no organomegaly Assessment/Plan Assessment/Plan Assessment/Plan 1. Pleural effusion 2. S/p COVID 3. Pulmonary fibrosis secondary to Covid-19 infection Plan 1. Performed thoracentesis at bedside yesterday. Drained 300-400 mL and performed a repeat CXR. Repeat CXR still shows a large left-sided pleural effusion. I believe the catheter was too small and the muscle kinked it off, catheter was bent when I removed it. Will ask IR to perform repeat thoracentesis to attempt to drain more fluid. I spoke with Radiology and Dr. Thomas thinks there could be septations. I relayed this to the pt and the fact that she may need a VATS procedure to remove pleural peel if that is the case. She understood and will wait until after attempted CT guided drainage. Supervisory-Addendum Brief Verification & Attestation Participated in pt care: history, MDM, physical Personally performed: exam, history, MDM, supervision of care Care discussed with: Medical Student Procedures: n/a Verification and Attestation of Medical Student E/M Service A medical student performed and documented this service. I then reviewed and verified all information documented by the medical student and made modifications to such information, when appropriate. I personally performed a physical exam, medical decision making and then discussed any differences between the notes and made revisions as necessary to create one note. Saravanan Roman , 02/12/21 , 12:25 ALFONZO YOO Feb 12, 2021 09:29 SARAVANAN ROMAN DO Feb 12, 2021 12:25
[2021-02-12 12:26] LABS: INR 1.3 (0.8-1.4); PROTHROMBIN TIME PATIENT 16.2 SEC (12.2-14.7)
--- NOTE | 2021-02-12 13:03 | Progress Note - Hospitalist ---
Subjective HPI/CC On Admission Date Seen by Provider: Feb 12, 2021 Time Seen by Provider: 10:10 Nathan Alvarez is a 40 year old female with post-COVID syndrome and chronic respiratory failure on 5 L who presented with fever. She had COVID about a month ago. She was discharged home with oxygen. Lately she has been needing a bit more oxygen with activity. She also reports some pressure on the left side of her chest. She denies any trauma. She has not noticed any worsening of her shortness of breath, but her oxygen drops when she takes it off to blow her nose. She continues to have cough. Subjective/Events-last exam She is feeling about the same. She is not short of breath, but she is just lying in bed. She denies fevers. Objective Exam Vital Signs Vital Signs Date Time Temp Pulse Resp B/P (MAP) Pulse Ox O2 Delivery O2 Flow Rate FiO2 02/12/21 08:00 94 High Flow N/C 5.00 02/12/21 08:00 36.4 101 21 116/61 (79) Capillary Refill : Less Than 3 Seconds General Appearance: No Apparent Distress, WD/WN Respiratory: No Respiratory Distress, Decreased Breath Sounds Cardiovascular: Regular Rate, Rhythm, No Edema, No Murmur Gastrointestinal: Normal Bowel Sounds, Non Tender, Soft Extremity: Normal Inspection, Non Tender, No Pedal Edema Neurologic/Psychiatric: Alert, Oriented x3, No Motor/Sensory Deficits, Normal Mood/Affect Skin: Normal Color, Warm/Dry Results/Procedures Lab Laboratory Tests 02/12/21 04:15 Patient resulted labs reviewed. Imaging: Reviewed Imaging Report Assessment/Plan Assessment and Plan Assess & Plan/Chief Complaint Large left pleural effusion Chest imaging with large left pleural effusion Surgery following Thoracentesis yesterday with ~300cc output Planning for IR thoracentesis today Fever Atelectasis Fever likely due to atelectasis Procalcitonin within normal limits No evidence of pneumonia on imaging Elevated d-dimer Hypercoagulable state associated with COVID-19 CTA negative for PE Venous dopplers negative for DVT Consider one month of therapeutic anticoagulation due to COVID related hypercoagulability Post-COVID syndrome Chronic respiratory failure with hypoxia Continue supplemental oxygen Obesity Cinically significant, no acute management needs Diagnosis/Problems Diagnosis/Problems (1) Pleural effusion on left Status: Acute (2) Fever Status: Acute (3) Atelectasis of left lung Status: Acute (4) Elevated d-dimer Status: Acute (5) Hypercoagulable state associated with COVID-19 Status: Acute (6) Post-COVID chronic dyspnea Status: Chronic TERESA SINGLETARY MD Feb 12, 2021 13:03
[2021-02-12] MEDS ORDERED: LIDOCAINE 1% INJ 20 ML 20 ML VIAL ONE (13:33)
[2021-02-12] MEDS ORDERED: LIDOCAINE 1% INJ 20 ML 20 ML VIAL INJ ONE (13:45)
--- NOTE | 2021-02-12 14:17 | Progress Note-Pre Operative ---
Pre-Operative Progress Note H&P Reviewed The H&P was reviewed, patient examined and no changes noted. Date Seen by Provider: Feb 12, 2021 Time Seen by Provider: 13:00 Date H&P Reviewed: Feb 12, 2021 Time H&P Reviewed: 13:00 Pre-Operative Diagnosis: pleural effusion EDU OWUSU MD Feb 12, 2021 14:17
--- NOTE | 2021-02-12 14:24 | Diagnostic Imaging Report ---
INDICATION: Left-sided loculated effusion. Patient presents for CT-guided drainage. TECHNIQUE: All CT scans use one or more of the following dose optimizing techniques: Automated exposure control, MA and/or KvP adjustment based on patient size and exam type or iterative reconstruction. Patient was brought to the CT suite and placed on table in the supine position. Axial imaging through the chest was performed to evaluate appropriate entry site. The left lateral chest was prepped and draped in the usual sterile fashion. A small amount of 1% lidocaine was utilized for local anesthesia. A Yueh needle was advanced into the left basilar pleural space. This was exchanged over a 0.035 guidewire. 6, 8 and 10-Irish dilators were then used. A 10-Irish pigtail all-purpose drain was advanced over the guidewire and placed into the left basilar pleural space. The loop was formed. Drain was placed to a Lm drain. The catheter was affixed to the patient's skin. Total procedure time was 7 minutes. IMPRESSION: CT-guided left pleural drain placement, as described. Dictated by: Dictated on workstation # [id number]
[2021-02-12] MEDS: ACETAMINOPHEN 325 MG TABLET PO PRN (16:15)
[2021-02-13] MEDS: ACETAMINOPHEN 325 MG TABLET PO PRN ×3 (03:47→16:05)
[2021-02-13 05:55] LABS: BASOPHILS % (AUTO) 0 % (0-10); EOSINOPHILS # (AUTO) 0.1 10^3/uL (0.0-0.3); EOSINOPHILS % (AUTO) 1 % (0-10); HEMATOCRIT 24 % (35-52); LYMPHOCYTES % (AUTO) 10 % (12-44); MEAN CORPUSCULAR HEMOGLOBIN 25 pg (25-34); MEAN CORPUSCULAR HGB CONC 29 g/dL (32-36); MEAN CORPUSCULAR VOLUME 88 fL (80-99); MEAN PLATELET VOLUME 10.4 fL (9.0-12.2); MONOCYTES # (AUTO) 1.1 10^3/uL (0.0-1.0); MONOCYTES % (AUTO) 10 % (0-12); NEUTROPHILS # (AUTO) 7.9 10^3/uL (1.8-7.8); NEUTROPHILS % (AUTO) 75 % (42-75); PLATELET COUNT 398 10^3/uL (130-400); WHITE BLOOD COUNT 10.5 10^3/uL (4.3-11.0)
[2021-02-13 06:12] LABS: POTASSIUM 3.5 MMOL/L (3.6-5.0)
[2021-02-13 06:14] LABS: CALCIUM 8.4 MG/DL (8.5-10.1)
[2021-02-13 06:18] LABS: CREATININE SERUM 0.53 MG/DL (0.60-1.30)
[2021-02-13 06:20] LABS: MAGNESIUM 1.9 MG/DL (1.6-2.4)
[2021-02-13] MEDS: MAGNESIUM 1 GM/100 ML IVPB 100 ML IV SCH (06:25)
[2021-02-13] MEDS: POTASSIUM CL 10MEQ/50ML IVPB 50 ML IV SCH (06:25)
[2021-02-13] MEDS: KCL 20 MEQ TAB (K-DUR) PO SCH (06:26)
[2021-02-13 08:00] VITALS: BP 114/60
[2021-02-13] MEDS ORDERED: KCL 20 MEQ TAB (K-DUR) PO ONE (08:00)
[2021-02-13] MEDS: FOLIC ACID 1 MG TAB PO SCH (08:06)
[2021-02-13 09:14] VITALS: BP 114/60
--- NOTE | 2021-02-13 10:50 | Progress Note ---
Subjective Date Seen by a Provider: Feb 13, 2021 Time Seen by a Provider: 10:00 Subjective/Events-last exam Patient seen with Dr. Alfaro. Patient denies any SOB or difficulty breathing. Reports ambulating and tolerating diet with no issues. Pleural drain with minimal output Objective Exam Vital Signs Date Time Temp Pulse Resp B/P (MAP) Pulse Ox O2 Delivery O2 Flow Rate FiO2 02/13/21 09:14 35.9 101 32 114/60 (78) 96 High Flow N/C 4.00 02/13/21 08:00 High Flow N/C 5.00 02/13/21 08:00 35.6 101 32 114/60 (78) 96 High Flow N/C 4.00 02/13/21 04:00 37.3 105 20 96 High Flow N/C 4.00 02/12/21 23:30 37.4 107 24 136/70 (92) 93 High Flow N/C 4.00 02/12/21 20:20 95 High Flow N/C 5.00 02/12/21 19:28 36.8 106 28 135/70 (91) 92 High Flow N/C 4.00 02/12/21 17:30 36.5 106 30 126/58 (80) 95 High Flow N/C 4.00 02/12/21 17:00 36.4 108 30 125/64 (84) 95 High Flow N/C 4.00 02/12/21 16:50 37.4 02/12/21 16:30 37.7 112 26 120/67 (84) 95 High Flow N/C 4.00 02/12/21 16:00 38.2 114 30 120/66 (84) 93 High Flow N/C 5.00 02/12/21 12:00 37.8 111 20 129/73 (91) 95 High Flow N/C 6.00 I & O 02/13/21 07:00 Intake Total 3010 ml Balance 3010 ml Capillary Refill : Less Than 3 Seconds General Appearance: No Apparent Distress, WD/WN Neck: Normal Inspection, Non Tender Respiratory: No Accessory Muscle Use, No Respiratory Distress Cardiovascular: Regular Rate, Rhythm, No Edema Gastrointestinal: normal bowel sounds, non tender, soft Extremity: Normal Inspection, Normal Range of Motion Neurologic/Psychiatric: Alert, Oriented x3 Skin: Normal Color, Warm/Dry Results Lab Laboratory Tests 02/13/21 05:00: White Blood Count 10.5, Red Blood Count 2.77L, Hemoglobin 7.0L, Hematocrit 24L, Mean Corpuscular Volume 88, Mean Corpuscular Hemoglobin 25, Mean Corpuscular Hemoglobin Concent 29L, Red Cell Distribution Width 17.4H, Platelet Count 398, Mean Platelet Volume 10.4, Immature Granulocyte % (Auto) 4, Neutrophils (%) (Auto) 75, Lymphocytes (%) (Auto) 10L, Monocytes (%) (Auto) 10, Eosinophils (%) (Auto) 1, Basophils (%) (Auto) 0, Neutrophils # (Auto) 7.9H, Lymphocytes # (Auto) 1.0, Monocytes # (Auto) 1.1H, Eosinophils # (Auto) 0.1, Basophils # (Auto) 0.0, Immature Granulocyte # (Auto) 0.5H, Sodium Level 136, Potassium Level 3.5L, Chloride Level 102, Carbon Dioxide Level 23, Anion Gap 11, Blood Urea Nitrogen 3L, Creatinine 0.53L, Estimat Glomerular Filtration Rate 127, BUN/Creatinine Ratio 6, Glucose Level 107H, Calcium Level 8.4L, Magnesium Level 1.9 Microbiology 02/10/21 Blood Culture - Preliminary, Resulted No growth Assessment/Plan Assessment/Plan Assess & Plan/Chief Complaint A 40 year old female with left Pleural effusion, S/p COVID, Pulmonary fibrosis secondary to Covid-19 infection VSS WBC 10.5 Patient denies any respiratory symptoms at this time Drain with minimal output - will repeat chest x-ray this afternoon, may need possible transfer for VATS VALERY NEIL DRAW BENCH OPERATOR Feb 13, 2021 10:50
[2021-02-13 11:28] VITALS: BP 110/65
[2021-02-13] MEDS: NS IV 1000 ML 1,000 ML IV SCH ×2 (11:38→17:00)
--- NOTE | 2021-02-13 12:52 | Progress Note - Hospitalist ---
Subjective HPI/CC On Admission Date Seen by Provider: Feb 13, 2021 Time Seen by Provider: 10:05 Nathan Alvarez is a 40 year old female with post-COVID syndrome and chronic respiratory failure on 5 L who presented with fever. She had COVID about a month ago. She was discharged home with oxygen. Lately she has been needing a bit more oxygen with activity. She also reports some pressure on the left side of her chest. She denies any trauma. She has not noticed any worsening of her shortness of breath, but her oxygen drops when she takes it off to blow her nose. She continues to have cough. Subjective/Events-last exam She is less short of breath today. She is tearful because her drain has not been putting out much fluid. Objective Exam Vital Signs Vital Signs Date Time Temp Pulse Resp B/P (MAP) Pulse Ox O2 Delivery O2 Flow Rate FiO2 02/13/21 11:31 95 Nasal Cannula 3.00 02/13/21 11:28 35.7 101 30 110/65 (80) Capillary Refill : Less Than 3 Seconds General Appearance: No Apparent Distress, Anxious, Obese Respiratory: No Respiratory Distress, Decreased Breath Sounds Cardiovascular: Regular Rate, Rhythm, No Edema, No Murmur Gastrointestinal: Normal Bowel Sounds, Non Tender, Soft Extremity: Normal Inspection, Non Tender, No Pedal Edema Neurologic/Psychiatric: Alert, Oriented x3, No Motor/Sensory Deficits Skin: Normal Color, Warm/Dry Results/Procedures Lab Laboratory Tests 02/13/21 05:00 Patient resulted labs reviewed. Imaging: Reviewed Imaging Report Assessment/Plan Assessment and Plan Assess & Plan/Chief Complaint Large left pleural effusion Chest imaging with large left pleural effusion Surgery following Thoracentesis 02/11 with ~300cc output IR pleural drain 02/12 with minimal output May need VATS Fever Atelectasis Fever likely due to atelectasis Procalcitonin within normal limits No evidence of pneumonia on imaging Incentive spirometry Elevated d-dimer Hypercoagulable state associated with COVID-19 CTA negative for PE Venous dopplers negative for DVT Consider one month of therapeutic anticoagulation due to COVID related hypercoagulability Post-COVID syndrome Chronic respiratory failure with hypoxia Continue supplemental oxygen Obesity Cinically significant, no acute management needs Diagnosis/Problems Diagnosis/Problems (1) Pleural effusion on left Status: Acute (2) Fever Status: Acute (3) Atelectasis of left lung Status: Acute (4) Elevated d-dimer Status: Acute (5) Hypercoagulable state associated with COVID-19 Status: Acute (6) Post-COVID chronic dyspnea Status: Chronic TERESA SINGLETARY MD Feb 13, 2021 12:52
--- NOTE | 2021-02-13 15:17 | Diagnostic Imaging Report ---
INDICATION: Pleural effusion. Recent thoracentesis. FINDINGS: There is a left base pigtail chest tube in place. The volume of left pleural fluid is not significantly changed from the prior exam. Discoid opacities within the aerated portion of the left lung appear stable. Diffuse patchy infiltrates throughout the right lung are unchanged. There is no appreciable change in size of the cardiac silhouette. There is no pneumothorax. IMPRESSION: 1. Despite the presence of a new left pigtail chest catheter, the patient's large left pleural effusion demonstrates no significant diminishment in volume. 2. No appreciable interval change in pulmonary infiltrates. Dictated by: Dictated on workstation # [id number]
[2021-02-13 16:18] VITALS: BP 138/77
[2021-02-13 20:34] VITALS: BP 128/74
[2021-02-13 23:30] VITALS: BP 120/71
[2021-02-14] MEDS: ACETAMINOPHEN 325 MG TABLET PO PRN ×3 (00:58→16:01)
[2021-02-14 03:45] VITALS: BP 128/78
[2021-02-14 05:46] LABS: BASOPHILS % (AUTO) 0 % (0-10); EOSINOPHILS # (AUTO) 0.1 10^3/uL (0.0-0.3); EOSINOPHILS % (AUTO) 1 % (0-10); HEMATOCRIT 25 % (35-52); HEMOGLOBIN 7.2 g/dL (11.5-16.0); LYMPHOCYTES # (AUTO) 1.2 10^3/uL (1.0-4.0); LYMPHOCYTES % (AUTO) 9 % (12-44); MEAN CORPUSCULAR HEMOGLOBIN 25 pg (25-34); MEAN CORPUSCULAR HGB CONC 29 g/dL (32-36); MEAN CORPUSCULAR VOLUME 87 fL (80-99); MONOCYTES # (AUTO) 1.3 10^3/uL (0.0-1.0); MONOCYTES % (AUTO) 10 % (0-12); NEUTROPHILS # (AUTO) 10.1 10^3/uL (1.8-7.8); NEUTROPHILS % (AUTO) 76 % (42-75); PLATELET COUNT 466 10^3/uL (130-400); WHITE BLOOD COUNT 13.3 10^3/uL (4.3-11.0)
[2021-02-14 05:59] LABS: POTASSIUM 3.4 MMOL/L (3.6-5.0)
[2021-02-14 06:00] LABS: CALCIUM 8.4 MG/DL (8.5-10.1)
[2021-02-14 06:05] LABS: CREATININE SERUM 0.54 MG/DL (0.60-1.30)
[2021-02-14] MEDS: POTASSIUM CL 10MEQ/50ML IVPB 50 ML IV SCH (06:32)
[2021-02-14] MEDS: MAGNESIUM 1 GM/100 ML IVPB 100 ML IV SCH (06:33)
[2021-02-14] MEDS: KCL 20 MEQ TAB (K-DUR) PO SCH (06:34)
[2021-02-14] MEDS: NS IV 1000 ML 1,000 ML IV SCH (07:02)
[2021-02-14 07:42] VITALS: BP 129/81
[2021-02-14] MEDS ORDERED: KCL 20 MEQ TAB (K-DUR) PO ONE (08:00)
[2021-02-14] MEDS: FOLIC ACID 1 MG TAB PO SCH (08:12)
--- NOTE | 2021-02-14 10:10 | Progress Note ---
Subjective Date Seen by a Provider: Feb 14, 2021 Time Seen by a Provider: 09:45 Subjective/Events-last exam Patient seen with Dr. Alfaro. Patient reports doing well and denies any SOB, difficultly breathing, or chest pain. Again reports minimal output from drain. Did reports intermittent episodes of sweats yesterday and last night. Tolerating diet. Objective Exam Vital Signs Date Time Temp Pulse Resp B/P (MAP) Pulse Ox O2 Delivery O2 Flow Rate FiO2 02/14/21 08:00 High Flow N/C 4.00 02/14/21 07:42 37.3 98 40 129/81 (97) 95 High Flow N/C 02/14/21 03:45 36.0 90 18 128/78 (95) 95 High Flow N/C 3.50 02/14/21 01:28 36.4 02/13/21 23:30 37.8 115 20 120/71 (87) 95 High Flow N/C 3.50 02/13/21 20:34 37.7 112 20 128/74 (92) 95 High Flow N/C 3.50 02/13/21 19:40 High Flow N/C 3.50 02/13/21 16:48 Nasal Cannula 3.00 02/13/21 16:35 37.9 02/13/21 16:18 38.4 115 22 138/77 (97) 92 High Flow N/C 3.00 02/13/21 11:31 95 Nasal Cannula 3.00 02/13/21 11:28 35.7 101 30 110/65 (80) 94 High Flow N/C 3.00 I & O 02/14/21 07:00 Intake Total 1880 ml Output Total 10 ml Balance 1870 ml Capillary Refill : Less Than 3 Seconds General Appearance: No Apparent Distress, WD/WN Neck: Normal Inspection, Non Tender Respiratory: No Accessory Muscle Use, No Respiratory Distress Cardiovascular: Regular Rate, Rhythm, No Edema Gastrointestinal: normal bowel sounds, non tender, soft Extremity: Normal Inspection, Normal Range of Motion Neurologic/Psychiatric: Alert, Oriented x3 Skin: Normal Color, Warm/Dry Results Lab Laboratory Tests 02/14/21 05:14: White Blood Count 13.3H, Red Blood Count 2.83L, Hemoglobin 7.2L, Hematocrit 25L, Mean Corpuscular Volume 87, Mean Corpuscular Hemoglobin 25, Mean Corpuscular Hemoglobin Concent 29L, Red Cell Distribution Width 17.7H, Platelet Count 466H, Mean Platelet Volume 10.0, Immature Granulocyte % (Auto) 4, Neutrophils (%) (Auto) 76H, Lymphocytes (%) (Auto) 9L, Monocytes (%) (Auto) 10, Eosinophils (%) (Auto) 1, Basophils (%) (Auto) 0, Neutrophils # (Auto) 10.1H, Lymphocytes # (Auto) 1.2, Monocytes # (Auto) 1.3H, Eosinophils # (Auto) 0.1, Basophils # (Auto) 0.0, Immature Granulocyte # (Auto) 0.6H, Sodium Level 138, Potassium Level 3.4L, Chloride Level 104, Carbon Dioxide Level 24, Anion Gap 10, Blood Urea Nitrogen 2L, Creatinine 0.54L, Estimat Glomerular Filtration Rate 124, BUN/Creatinine Ratio 4, Glucose Level 98, Calcium Level 8.4L 02/14/21 05:23: Magnesium Level 2.0 Microbiology 02/10/21 Blood Culture - Preliminary, Resulted No growth Assessment/Plan Assessment/Plan Assess & Plan/Chief Complaint A 40 year old female with left Pleural effusion, S/p COVID, Pulmonary fibrosis secondary to Covid-19 infection VSS WBC increased to 13.3 - will start zosyn Patient denies any respiratory symptoms at this time Drain with minimal output - may need possible transfer for VATS VALERY NEIL APRN Feb 14, 2021 10:10
[2021-02-14] MEDS ORDERED: ALPRAZolam 0.25 MG (XANAX) TAB PO PRN (10:45)
[2021-02-14 11:15] VITALS: BP 119/72
[2021-02-14] MEDS ORDERED: PIPERACILLIN/TAZOBACTAM (BULK) 4.5 GM in NS (IVPB) 100 ML IV NR (12:00)
[2021-02-14 15:44] VITALS: BP 137/78
[2021-02-14] MEDS ORDERED: PIPERACILLIN/TAZOBACTAM (BULK) 4.5 GM in NS (IVPB) 100 ML IV SCH (18:00)
--- NOTE | 2021-02-14 18:26 | Discharge Summary ---
Discharge Summary Hospital Course Was the Problem List Reviewed?: Yes Problems/Dx: (1) Pleural effusion on left Status: Acute (2) Fever Status: Acute (3) Atelectasis of left lung Status: Acute (4) Elevated d-dimer Status: Acute (5) Hypercoagulable state associated with COVID-19 Status: Acute (6) Post-COVID chronic dyspnea Status: Chronic Hospital Course Date of Admission: Feb 12, 2021 at 09:29 Admission Diagnosis : Pleural effusion Family Physician/Provider: No,Local Physician Date of Discharge: 02/14/21 Discharge Diagnosis: Loculated pleural effusion Hospital Course: Nathan Alvarez is a 40 year old female who was admitted with shortness of breath. She had COVID one month ago and has been on chronic oxygen 5 L continuously since that time. She was feeling more short of breath. She was found to have a large pleural effusion with near complete atelectasis of her left lung. She had a thoracentesis with removal of ~300 cc pleural fluid. She then had an IR pleural drain placed with minimal output. Her CT appeared to show loculations within her pleural space. She was transferred to [facility] [place]ATS. Labs and Pending Lab Test: Laboratory Tests 02/14/21 05:14: White Blood Count 13.3H, Red Blood Count 2.83L, Hemoglobin 7.2L, Hematocrit 25L, Mean Corpuscular Volume 87, Mean Corpuscular Hemoglobin 25, Mean Corpuscular Hemoglobin Concent 29L, Red Cell Distribution Width 17.7H, Platelet Count 466H, Mean Platelet Volume 10.0, Immature Granulocyte % (Auto) 4, Neutrophils (%) (Auto) 76H, Lymphocytes (%) (Auto) 9L, Monocytes (%) (Auto) 10, Eosinophils (%) (Auto) 1, Basophils (%) (Auto) 0, Neutrophils # (Auto) 10.1H, Lymphocytes # (Auto) 1.2, Monocytes # (Auto) 1.3H, Eosinophils # (Auto) 0.1, Basophils # (Auto) 0.0, Immature Granulocyte # (Auto) 0.6H, Sodium Level 138, Potassium Level 3.4L, Chloride Level 104, Carbon Dioxide Level 24, Anion Gap 10, Blood Urea Nitrogen 2L, Creatinine 0.54L, Estimat Glomerular Filtration Rate 124, BUN/Creatinine Ratio 4, Glucose Level 98, Calcium Level 8.4L 02/14/21 05:23: Magnesium Level 2.0 02/14/21 13:08: SARS-CoV-2 RNA (RT-PCR) Not Detected Microbiology 02/10/21 Blood Culture - Preliminary, Resulted No growth Home Meds Active Reported Cyclobenzaprine HCl 10 Mg Tablet 10 Mg PO Q8H PRN Tums Ultra (Calcium Carbonate) 400 Mg Tab.chew 400-800 Mg PO UD PRN Claritin (Loratadine) 10 Mg Tablet 10 Mg PO DAILY PRN Tylenol Extra Strength (Acetaminophen) 500 Mg Tablet 500-1,000 Mg PO Q8H PRN Ibuprofen 200 Mg Tablet 400-600 Mg PO Q8H PRN Assessment/Pt Instructions Patient transferred to [facility] [place] possible VATS due to loculated pleural effusion. Discharge Planning: >30 minutes discharge planning Discharge Instructions Discharge Diet: No Restrictions Activity as Tolerated: Yes Consultations Surgery Discharge Physical Examination Vital Signs Vital Signs Date Time Temp Pulse Resp B/P (MAP) Pulse Ox O2 Delivery O2 Flow Rate FiO2 02/14/21 16:50 02/14/21 16:01 38.0 02/14/21 15:44 117 34 93 High Flow N/C 4.00 General Appearance: Anxious, Obese Respiratory: No Respiratory Distress, Decreased Breath Sounds Cardiovascular: No Edema, Tachycardia Gastrointestinal: Normal Bowel Sounds, Non Tender, Soft Extremity: Normal Inspection, Non Tender, No Pedal Edema Skin: Normal Color, Warm/Dry Neurologic/Psychiatric: Alert, Oriented x3, No Motor/Sensory Deficits, Normal Mood/Affect Allergies: Coded Allergies: sulfamethoxazole (Verified Allergy, Unknown, 02/10/21) trimethoprim (Verified Allergy, Unknown, 02/10/21) Discharge Summary Date of Admission Feb 12, 2021 at 09:29 Date of Discharge Feb 14, 2021 at 16:50 Discharge Date: Feb 14, 2021 Discharge Time: 16:50 Admission Diagnosis Large pleural effusion Consults/Procedures Consulations Surgery, IR Discharge Diagnosis Large loculated left pleural effusion (1) Pleural effusion on left Status: Acute (2) Fever Status: Acute (3) Atelectasis of left lung Status: Acute (4) Elevated d-dimer Status: Acute (5) Hypercoagulable state associated with COVID-19 Status: Acute (6) Post-COVID chronic dyspnea Status: Chronic TERESA SINGLETARY MD Feb 14, 2021 18:26
== END 2021-02-14 16:50 | disposition short-term general hospital (02) | DRG 187 ==
LOC: EDUNIT# 14:00 → ER FS 14:02 → 4TH 18:25 → OBSVTOIN 02-12 09:29
PROVIDERS: ADMIT Internal Medicine; ATTEND Internal Medicine
PROC: 0W9B3ZZ Drainage of Left Pleural Cavity, Percutaneous Approach (ICD-10-PCS; principal; 2021-02-11)
PROC: 0W9B30Z Drainage of Left Pleural Cavity with Drainage Device, Percutaneous Approach (ICD-10-PCS; 2021-02-12)
DX: J90 Pleural effusion, not elsewhere classified (principal); J98.11 Atelectasis; J96.11 Chronic respiratory failure with hypoxia; D68.69 Other thrombophilia; J84.10 Pulmonary fibrosis, unspecified; E66.9 Obesity, unspecified; Z20.822 Contact with and (suspected) exposure to COVID-19; Z79.899 Other long term (current) drug therapy; Z88.2 Allergy status to sulfonamides; B94.8 Sequelae of other specified infectious and parasitic diseases; Z68.32 Body mass index [BMI] 32.0-32.9, adult
CPT/HCPCS: 36415; 71045; 71275; 77012; 80048; 80053; 82274; 82607; 82728; 82746; 83540; 83550; 83735; 84145; 85007; 85025; 85027; 85379; 85610; 86141; 86850; 86900; 86901; 87040; 87636; 93970; 94664; 94760; G0378

== ENCOUNTER → 2021-03-26 | Outpatient (CLI) | payer BC ==
[~2021-03-26] MED LIST changes: +CYCL10TA9 PO
--- NOTE | 2021-03-26 12:50 | Diagnostic Imaging Report ---
INDICATION: Pneumothorax and pyothorax with shortness of breath. TIME OF EXAM: 12:11 PM CORRELATION is made with prior chest from 02/13/2021. A loculated left-sided hydropneumothorax is noted. There is compressive atelectasis in the left base. The right lung is fully expanded and without infiltrate or fluid. Heart size is normal. IMPRESSION: There appears to be a loculated hydropneumothorax on the left producing compressive atelectasis in the left base. Dictated by: Dictated on workstation # [id number]
== END ==
LOC: RAD FS 11:46
PROVIDERS: ATTEND Nurse Practitioner Family
DX: J12.9 Viral pneumonia, unspecified (principal); J86.9 Pyothorax without fistula; R06.02 Shortness of breath; J98.11 Atelectasis
CPT/HCPCS: 71046

== ENCOUNTER → 2021-06-08 | Outpatient (CLI) | payer BC ==
[~2021-06-08] MED LIST changes: +CYCL10TA25 PO; -CYCL10TA9 PO
--- NOTE | 2021-06-08 13:52 | Diagnostic Imaging Report ---
INDICATION: Followup loculated hydropneumothorax. TIME OF EXAM: 1:16 PM. COMPARISON: 03/26/2021. FINDINGS: The previously noted loculated hydropneumothorax on the left has resolved. There is some residual pleural fluid in the left base as well as some residual atelectasis or scarring in the left base. The right lung is clear. No pneumothorax is seen. The heart size is stable. IMPRESSION: Improving appearance of the chest since the examination from 03/26/2021. There is some residual left pleural fluid and mild left basilar atelectasis or scarring. Dictated by: Dictated on workstation # [id number]
== END ==
LOC: RAD FS 13:03
PROVIDERS: ATTEND Nurse Practitioner Family
DX: J94.2 Hemothorax (principal); D72.828 Other elevated white blood cell count; Z86.16 Personal history of COVID-19
CPT/HCPCS: 71046